=== PATIENT | female | born 1975 | race Caucasian/White ===

== ENCOUNTER 2023-08-29 12:26 | Outpatient (OUT) | payer BC, SELFPAY ==
--- NOTE | 2023-08-29 12:41 | XR_ITS ---
The [address] [address] Patient Name: ALEJANDRO GUILLEN MRN: [id number] date: 1975 Sex: F Assigned Patient Location: [facility] Current Patient Location: [facility] Accession/Order Number: [id number] Exam Date: 08/29/2023 12:50 Report Date: 08/30/2023 10:23 At the request of: NON-STAFF PHYSICIAN Procedure: XR hip RT min 2V PROCEDURE: XR hip RT min 2V COMPARISON: MRI 08/30/2017 HISTORY: Osteochondroma D16.9 FINDINGS: BONES:Stable mixed lytic and sclerotic lesion in a narrow zone of transition measuring 2.8 x 2.0 cm in the right femoral neck, grossly stable in size from the prior MRI. No acute fracture or dislocation. No significant degenerative changes. SOFT TISSUES:Negative. No visible soft tissue swelling. EFFUSION:None visible. OTHER: Negative. XR/XR hip RT min 2V IMPRESSION: Stable 2.7 cm mixed lytic and sclerotic lesion in the right femoral neck Electronically authenticated by: EUN KULKARNI Date: 08/30/2023 10:23
== END 2023-08-29 12:27 | disposition home or self-care (01) ==
LOC: RAD 12:28
PROVIDERS: PCP Family Medicine
DX: R63.5 Abnormal weight gain (principal); D16.9 Benign neoplasm of bone and articular cartilage, unspecified
CPT/HCPCS: 36415; 73502; 80053; 80061; 83036; 83525; 84443; 85025

== ENCOUNTER 2023-08-29 12:31 | Outpatient (OUT) | payer BC, SELFPAY ==
[2023-08-29 12:44] LABS: Basophils Absolute Auto 0.1 10^3/uL (0.0-0.1); Basophils Percent Auto 0.5 % (0.2-2.0); Eosinophils Absolute Auto 0.3 10^3/uL (0.0-0.7); Eosinophils Percent Auto 2.6 % (0.9-7.0); Hematocrit 44.9 % (36.0-48.0); Hemoglobin 14.3 g/dL (12.0-16.0); Immature Granulocytes Abs Auto 0.08 10^3/uL (0.00-0.03); Immature Granulocytes Pct Auto 0.7 % (0.0-0.5); Lymphocytes Absolute Auto 3.6 10^3/uL (1.2-3.8); Lymphocytes Percent Auto 33.1 % (20.5-60.0); Mean Corpuscular HGB Conc 31.8 g/dL (29.9-35.2); Mean Corpuscular Hemoglobin 29.7 pg (26.7-34.0); Mean Corpuscular Volume 93.2 fL (81.0-99.0); Mean Platelet Volume 10.6 fL (9.5-13.5); Monocytes Absolute Auto 0.7 10^3/uL (0.3-0.8); Monocytes Percent Auto 6.6 % (1.7-12.0); Neutrophils Absolute Auto 6.1 10^3/uL (1.4-6.5); Neutrophils Percent Auto 56.5 % (43.0-75.0); Platelet Count 295 10^3/uL (150-450); Red Blood Count 4.82 10^6/uL (4.20-5.40); Red Cell Distribution Width 12.9 % (11.0-15.0); White Blood Count 10.8 10^3/uL (4.0-11.0)
[2023-08-29 13:04] LABS: Estimated Average Glucose 111 mg/dL; Glycohemoglobin A1C 5.5 % (4.5-6.2)
[2023-08-29 14:17] LABS: Alanine Aminotransferase 54 U/L (14-59); Albumin Level 3.4 g/dL (3.4-5.0); Alkaline Phosphatase 85 U/L (46-116); Anion Gap 14.6; Aspartate Amino Transferase 30 U/L (15-37); BUN Creatinine Ratio 22.3; Bilirubin Total 0.2 mg/dL (0.2-1.0); Calcium 8.8 mg/dL (8.5-10.1); Carbon Dioxide 26.5 mmol/L (21.0-32.0); Chloride 103 mmol/L (98-107); Chol HDL Ratio 4.9; Cholesterol 200 mg/dL (<=200); Estimated GFR (African America >60 (>=60); Estimated GFR (Non-African Ame >60 (>=60); Globulin 3.4 g/dL; Glucose 83 mg/dL (74-106); HDL Cholesterol 41 mg/dL (40-60); Potassium 4.1 mmol/L (3.5-5.1); Sodium 140 mmol/L (136-145); TSH W/ REFLEX FT4 1.634 uIU/mL (0.358-3.740); Total Protein 6.8 g/dL (6.4-8.2); Triglycerides 381 mg/dL (<=150); VLDL CHOLESTEROL 76.2 mg/dL
[2023-08-30 08:11] LABS: Insulin 22.4 uIU/mL (2.6-24.9)
== END 2023-08-29 12:32 | disposition home or self-care (01) ==
LOC: LAB 12:31
PROVIDERS: PCP Family Medicine
DX: R63.5 Abnormal weight gain (principal)
CPT/HCPCS: 36415; 80053; 80061; 83036; 83525; 84443; 85025

== ENCOUNTER 2024-05-21 14:47 | Outpatient (OUT) | payer BC, SELFPAY ==
--- NOTE | 2024-05-21 14:52 | XR_ITS ---
The [address] [address] Patient Name: ALEJANDRO GUILLEN MRN: [id number] date: 1975 Sex: F Assigned Patient Location: [facility] Current Patient Location: Accession/Order Number: [id number] Exam Date: 05/21/2024 14:54 Report Date: 05/22/2024 15:05 At the request of: ANGEL OLIVER Procedure: XR chest 2V EXAM: CHEST 2 VIEWS HISTORY: Cough, Wheezing TECHNIQUE: PA and lateral views chest. COMPARISON: None. FINDINGS: The lungs are clear. There is no focal lung consolidation, pleural effusion or pneumothorax. Pulmonary vasculature is within normal limits. The cardiomediastinal silhouette is normal. XR/XR chest 2V IMPRESSION: 1. No acute cardiopulmonary disease. Recommend followup imaging if symptoms worsen or persist. Electronically authenticated by: JESSI JONAS Date: 05/22/2024 15:05
== END 2024-05-21 14:48 | disposition home or self-care (01) ==
LOC: RAD 14:50
PROVIDERS: PCP Family Medicine; Visit Provider Family Medicine
DX: R05.9 Cough, unspecified (principal); R06.2 Wheezing
CPT/HCPCS: 71046

== ENCOUNTER 2024-11-08 22:10 | Emergency (ER) | payer BC, SELFPAY ==
[2024-11-08 22:28] VITALS: BP 114/69; PULSE 104; TEMP 36.9; O2SAT 94; BMI 37.4
--- OUTSIDE RECORDS SUMMARY | 2024-11-08 22:43 | XMS_ITS | CCD ---
Author Organization [facility] Care Team Providers Care Intelligence Clerk Name Role Phone BRODIE PETERSEN Unavailable Unavailable HOUSE, PIETRO Garrison Unavailable Unavailable MAYERSONBRODIE Unavailable Unavailable VAJAPEY, MATA Unavailable Unavailable MAYERSON, BRODIE Yates Unavailable Unavailable MAYERSON, BRODIE Yates Unavailable Unavailable HOUSE, DR WESTBROOK Primary Care Unavailable MARKER, DR MOLINA Attending Unavailable MARKER, DR MOLINA Consulting Unavailable MARKER, DR MOLINA Admitting Unavailable DELVIS, ANGELICA Consulting Unavailable HOUSE, DR WESTBROOK Primary Care Unavailable HOUSE, DR WESTBROOK Admitting Unavailable HOUSE, DR WESTBROOK Attending Unavailable HOUSE, DR WESTBROOK Consulting Unavailable SAVEBHILLARY, DR GONZALO Estrada Consulting Unavailable HOUSE, DR WESTBROOK Admitting Unavailable HOUSE, DR WESTBROOK Attending Unavailable HOUSE, DR WESTBROOK Consulting Unavailable HOUSE, DR WESTBROOK Primary Care Unavailable LIT, DR GONZALO Estrada Consulting Unavailable Dank Griffin Primary Care Physician EL ELLISON Attending Unavailable APLGIOVANNY, EL Layton Referring Unavailable APLING, EL Layton Attending Unavailable APLING, EL Layton Referring Unavailable Dank Griffin Attending Unavailable Dank Griffin Attending Unavailable Dank Griffin Attending Unavailable KATHY REYNOSO Attending Unavailable Dank Griffin Attending Unavailable Allergies Allergy Classification Reported Allergen(s) Allergy Type Date of Onset Reaction(s) Facility (1 source) No Known Medication Allergies; Translations: [No Known Medication Allergies] Propensity to adverse reactions (disorder) [facility] Repository Medications Current Medications Medication Drug Class(es) Dates Sig (Normalized) Sig (Original) DULoxetine 60 mg delayed release oral capsule (3 sources) Serotonin and Norepinephrine Reuptake Inhibitor Start: 05-23-20 take 1 capsule by mouth once daily duloxetine 60 mg oral delayed release capsule 60 mg = 1 cap(s), Oral, Daily, # 90 cap(s), Refills(s) 0, Pharmacy: [facility], 165.5, cm, 05/23/23 15:06:00 EST, Height/Length Dosing, 102.5, kg, 05/23/23 15:06:00 EST, Weight Dosing Start Date: 05/23/23 Status: Ordered fluticasone propionate 0.05 mg/actuat metered dose nasal spray (1 source) Corticosteroid fluticasone prop ionate 50 mcg/actuation nasal spray,suspension spray once into each nostril TWICE DAILY active Not Available Not Available Not Available hydroCHLOROthiazide 12.5 mg oral capsule (3 sources) Thiazide Diuretic Start: 05-23-20 End: 06-04-20 take 1 capsule by mouth once daily hydrochlorothiazide 12.5 mg Cap 12.5 mg = 1 cap(s), Oral, Daily, # 90 cap(s), Refills(s) 0, Pharmacy: [facility], 165.5, cm, 05/23/23 15:06:00 EST, Height/Length Dosing, 102.5, kg, 05/23/23 15:06:00 EST, Weight Dosing Start Date: 05/23/23 Status: Ordered pramipexole dihydrochloride 1.5 mg oral tablet (3 sources) Nonergot Dopamine Agonist Start: 05-23-20 take 1 tablet by mouth once daily pramipexole 1.5 mg Tab 1.5 mg = 1 tab(s), Oral, Daily, # 90 tab(s), Refills(s) 0, Pharmacy: [facility], 165.5, cm, 05/23/23 15:06:00 EST, Height/Length Dosing, 102.5, kg, 05/23/23 15:06:00 EST, Weight Dosing Start Date: 05/23/23 Status: Ordered {11 (varenicline 0.5 MG Oral Tablet [Chantix]) / 42 (varenicline 1 MG Oral Tablet [Chantix]) } Pack [Chantix First Month of Therapy] (2 sources) Partial Cholinergic Nicotinic Agonist Start: 06-27-19 take 1 tablet by mouth twice daily Chantix 1 mg oral tablet 1 mg = 1 tab(s), Oral, BID, Take after the starter dose., # 180 tab(s), Refills(s) 1, Pharmacy: [facility], 165.5, cm, 06/27/23 14:04:00 EST, Height/Length Dosing, 101.3, kg, 06/27/23 14:04:00 EST, Weight Dosing Start Date: 06/27/23 Status: Ordered Start: 06-27-2023 take 0.5 tablet by m outh twice daily, then take 1 mg by mouth twice daily at mealtime Chantix Starter Pack 0.5 mg-1 mg oral tablet See Instructions, Start with .5 bid for 2 weeks then move to 1mg bid. Please take with food, # 60 EA, Refills(s) 0, Pharmacy: [facility], 165.5, cm, 06/27/23 14:04:00 EST, Height/Length Dosing, 101.3, kg, 06/27/23 14:04:00 EST, Weight Dosing Start Date: 06/27/23 Status: Ordered Completed/Discontinued Medications Medication Drug Class(es) Dates Sig (Normalized) Sig (Original) acetaminophen 300 mg / codeine phosphate 30 mg oral tablet (1 source) Opioid Agonist End: 4 take 1 tablet by mouth every six hours as needed for pain acetaminophen 300 mg-codeine 30 mg tablet TAKE 1 TABLET BY MOUTH EVERY 6 HOURS NEEDED FOR PAIN 06/04/2024 completed Not Available Not Available Not Available amoxicillin 500 mg oral tablet (1 source) Penicillin-class Antibacterial End: 4 take 1 tablet by mouth every six hours amoxicillin 500 mg tablet TAKE 1 TABLET BY MOUTH EVERY 6 HOURS UNTIL FINISHED 06/04/2024 completed Not Available Not Available Not Available amoxicillin 875 mg / clavulanate 125 mg oral tablet (1 source) Penicillin-class Antibacterial End: 4 take 1 tablet by mouth twice daily amoxicillin 875 mg-potassium clavulanate 125 mg tablet TAKE 1 TABLET BY MOUTH TWICE DAILY UNTIL GONE 06/04/2024 completed Not Available Not Available Not Available azithromycin 250 mg oral tablet (1 source) Macrolide Antimicrobial End: 4 azithromycin 250 mg tablet TAKE 2 TABLETS by mouth today, THEN take 1 TABLET once a day FOR the next 4 DAYS. 06/04/2024 completed Not Available Not Available Not Available chlorhexidine gluconate 1.2 mg/ml mouthwash (1 source) End: 4 chlorhexidine gluconate 0.12 % mouthwash Rinse WITH ONE-HALF OUNCE for 30 seconds, then spit out TWICE DAILY FOR 14 DAYS 06/04/2024 completed Not Available Not Available Not Available methylprednisolone 4 mg tablets in a dose pack (1 source) End: 4 methylprednisolone 4 mg tablets in a dose pack TAKE BY MOUTH DIRECTED ON PACKAGE 06/04/2024 completed Not Available Not Available Not Available Problems Active Problems Problem Classification Problem Date Documented Date Episodic/Chronic Anxiety disorders (3 sources) Anxiety disorder, unspecified; Translations: [Mixed anxiety and depressive disorder] Onset: 11-02-2021 05-23-2023 Chronic Essential hypertension (1 source) Hypertensive disorder 06-27-2023 Chronic Mood disorders (2 sources) Major depressive disorder, single episode, unspecified; Translations: [Depressive disorder] Onset: 11-02-2021 Chronic Other circulatory disease (1 source) Elevated blood-pressure reading without diagnosis of hypertension 05-23-2023 Episodic Other hereditary and degenerative nervous system conditions (1 source) Restless legs syndrome; Translations: [RESTLESS LEGS SYNDROME] Onset: 11-02-2021 Chronic Other hereditary and degenerative nervous system conditions (3 sources) Restless legs Onset: 06-04-2024 05-23-2023 Chronic Other skin disorders (1 source) Localized swelling, mass and lump, unspecified; Translations: [Localized swelling, mass and lump, unspecified] Onset: 09-20-2017 Episodic Residual codes; unclassified (2 sources) Pitting edema 05-23-2023 Episodic Residual codes; unclassified (2 sources) Sleep disorder 05-23-2023 Episodic Spondylosis; intervertebral disc disorders; other back problems (1 source) Other intervertebral disc degeneration, lumbar region; Translations: [OTH IV DISC DEGEN LUMBAR REGION] Onset: 04-26-2022 Chronic Unclassified (1 source) Localized swelling, mass and lump, unspecified / R22.9(ICD-10) Onset: 09-20-2017 Unclassified (3 sources) LOW BACK PAIN, UNSPECIFIED; Translations: [LOW BACK PAIN, UNSPECIFIED] Onset: 04-26-2022 Unclassified (3 sources) Patient encounter status 05-23-2023 Past or Other Problems Problem Classification Problem Date Documented Da te Episodic/Chronic Other connective tissue disease (4 sources) Pain in right foot; Translations: [PAIN IN RIGHT FOOT] Onset: 07-29-2021 Episodic Other skin disorders (4 sources) Localized swelling, mass and lump, neck; Translations: [LOCALIZED SWELLING MASS AND LUMP NECK] Onset: 10-29-2021 Episodic Unclassified (1 source) LOW BACK PAIN, UNSPECIFIED; Translations: [LOW BACK PAIN, UNSPECIFIED] Onset: 04-22-2022 Results Test Name Value Interpretation Reference Range Facility hearing screening*on 025 Unknown Analyte Pass Invalid Interpretation Code [facility] urinalysis, dipstickon 10-30 Appearance (U) Clear Invalid Interpretation Code [employer] Color (U) Yellow Invalid Interpretation Code [employer] [employer] Glucose Ql (U) Negative Invalid Interpretation Code [employer] Ambulatory Visit Summaryon 0 07-16-2024 Ambulatory Visit Summary Ambulatory Visit Summary ALEJANDRO HILLS :1975 Visit Date:07/16/2024 Ambulatory Visit Instructions Your Diagnosis BMI 36.0-36.9,adult Obesity (BMI 30-39.9) Smoker Your Care Team Attending Physician - Dank Griffin MD Primary Care Physician - Dank Griffin MD. This Is Your Medications List duloxetine (duloxetine 60 mg oral delayed release capsule) hydrochlorothiazide (hydrochlorothiazide 12.5 mg Cap) pramipexole (pramipexole 1.5 mg Tab) Procedures Performed Hysterectomy and bilateral salpingo-oophorectomy sample, Tonsillectomy. Discharge Vitals Temperature (Tympanic) 36.7 ???C Heart Rate (Peripheral) 86 Respiratory Rate 18 Blood Pressure 138/84 Height 165.5 cm Height 65 in Weight 100.0 kg Weight 220.462 lb BMI 36.51 Medications What How Much When Instructions Unchanged duloxetine (duloxetine 60 mg oral delayed release capsule) 1 Capsules By Mouth Every day Unchanged hydrochlorothiazide (hydrochlorothiazide 12.5 mg Cap) See instructions TAKE 1 CAPSULE BY MOUTH DAILY Unchanged pramipexole (pramipexole 1.5 mg Tab) 1 Tablets By Mouth Every day Allergies No Known Medication Allergies Problems Ongoing - Any problem that you are currently receiving treatment for. BMI 36.0-36.9,adult HLD (hyperlipidemia) HTN (hypertension) Low back pain Mixed anxiety and depressive disorder Mixed anxiety and depressive disorder Obesity (BMI 30-39.9) Osteochondroma of bone Physical exam Pitting edema Pitting edema Restless legs Sleep disorder Smoker Patient Survey You may receive a survey via text or e-mail asking about your office visit. Please share your experience with us by completing your survey. We appreciate your feedback and thank you for choosing us for your care. [facility] Family Medicine Office/Clini c Noteon 07-16-2024 Family Medicine Office/Clinic Note Family Medicine Office/Clinic Note Chief Complaint Acute Visit *Ear pain The patient is concerned about the inability to hear from the left ear. HPI Staff Pt presents today due to Lt ear pain. Fevers: no Sinus congestion: no Sneezing: no Ear pain: Lt ear Ear itching, popping, fullness, ringing, muffled hearing:no Ear drainage: 1 night last week Swollen nodes: last week Sore throat: no Ear pain worse with chewing: no Itching: no Difficulty hearing: yes Has tried flushing with peroxide. No relief. History of Present Illness The patient is a 49-year-old female presenting with decreased auditory perception in the left ear. Approximately one week ago, the patient noted some fluid drainage from the ear, which coincided with the onset of diminished hearing. Initially, the patient attempted self-treatment with peroxide ear drops, but there was no improvement in hearing ability. Currently, the patient experiences no acute otalgia. Despite concerns, no significant changes in pain levels have been observed. The patient denies any ongoing drainage at this time, although fluid accumulation behind the ear persists. There is no report of wax occlusion as per the examination, with a history of similar issues being experienced by the patient's ex-. Review of Systems PHQ Score Initial Depression Screen Score: 0 SCORE - Ears/Nose/Throat: Reports decreased hearing in the left ear. Denies pain or ongoing drainage from the ear. Physical Exam Vitals & Measurements T: 36.7 ???C(Tympanic) HR: 86(Peripheral) RR: 18 BP: 138/84 SpO2: 95% HT: 65 in HT: 165.5 cm WT: 100.0 kg WT: 220.462 lb BMI: 36.51 - Ears- Presence of fluid behind the left tympanic membrane noted. No earwax buildup observed. Assessment/Plan 1. Eustachian tube dysfunction (H69.90: Unspecified Eustachian tube disorder, unspecified ear) I discussed with the patient that fluid retention behind the tympanic membrane is likely contributing to the hearing difficulty experienced. I recommended the use of nasal saline irrigation to address potential sinus congestion, followed by the administration of Flonase for its anti-inflammatory effects on the nasal pathways and Eustachian tube. This regimen is expected to aid in the resolution of the fluid buildup and improve hearing function. The patient was advised to closely monitor symptoms and was informed that further assessment will be necessary if no improvement is observed. Ordered: fluticasone nasal, 1 spray(s), Nasal, BID, 16 gram, Refill(s) 0, each nostril, [facility], 165.5, cm, 07/16/24 16:51:00 EST, Height/Length Dosing, 100, kg, 07/16/24 16:51:00 EST, Weight Dosing 2. BMI 36.0-36.9,adult (Z68.36: Body mass index [BMI] 36.0-36.9, adult) BMI education added Ordered: fluticasone nasal, 1 spray(s), Nasal, BID, 16 gram, Refill(s) 0, each nostril, [facility], 165.5, cm, 07/16/24 16:51:00 EST, Height/Length Dosing, 100, kg, 07/16/24 16:51:00 EST, Weight Dosing 3. Obesity (BMI 30-39.9) (E66.9: Obesity, unspecified) Diet and exercise advised Ordered: fluticasone nasal, 1 spray(s), Nasal, BID, 16 gram, Refill(s) 0, each nostril, [facility], 165.5, cm, 07/16/24 16:51:00 EST, Height/Length Dosing, 100, kg, 07/16/24 16:51:00 EST, Weight Dosing 4. Smoker (F17.200: Nicotine dependence, unspecified, uncomplicated) Please stop smoking. Ordered: fluticasone nasal, 1 spray(s), Nasal, BID, 16 gram, Refill(s) 0, each nostril, [facility], 165.5, cm, 07/16/24 16:51:00 EST, Height/Length Dosing, 100, kg, 07/16/24 16:51:00 EST, Weight Dosing Follow-up No qualifying data available Problem List/Past Medical History Ongoing BMI 36.0-36.9,adult Eustachian tube dysfunction HLD (hyperlipidemia) HTN (hypertension) Low back pain Mixed anxiety and depressive disorder Mixed anxiety and depressive disorder Obesity (BMI 30-39.9) Osteochondroma of bone Physical exam Pitting edema Pitting edema Restless legs Sleep disorder Smoker Historical No qualifying data Procedure/Surgical History Hysterectomy and bilateral salpingo-oophorectomy sample, Tonsillectomy. Medications duloxetine 60 mg oral delayed release capsule, 60 mg= 1 cap(s), Oral, Daily, 1 refills Flonase 0.05 mg/inh [place], 1 spray(s), Nasal, BID hydrochlorothiazide 12.5 mg Cap, See Instructions pramipexole 1.5 mg Tab, 1.5 mg= 1 tab(s), Oral, Daily Allergies No Known Medication Allergies Social History Alcohol Never., 05/21/2024 Substance Abuse Never., 05/21/2024 Tobacco 10 or more cigarettes (1/2 pack or more)/day in last 30 days Tobacco Use:. Never Smokeless Tobacco Use:. Cigarettes, Household tobacco concerns: No. Yes, 07/16/2024 Family History Alcoholism: Mother and Father. Anxiety: Father. Depression: Father. Hyperlipidemia: Mother and Father. Hypertension: Mother and Father. Immunizations Vaccine Date Status Comments SARS-CoV-2 (COVID-19) mRN (more content not included)... Normal [facility] Comment on above: Result Comment: Elec tronically Signed By: Elias GENAO, Dank Avilez.br\Date and Time Signed: 07/16/24 17:14 EST Family Medicine Office/Clini c Noteon 05-21-2024 Family Medicine Office/Clinic Note Family Medicine Office/Clinic Note HPI Staff Alejandro is a 48 year old female presenting for acute visit Acute: wheezing and cough since Tuesday _Respiratory C/O: Duration: 6 days Body aches: no Chest congestion: yes Chills: no Cough: yes Ear complaints: no Eye itching/watering: no Fever: yes maybe last tue. Headache: yes Nasal congestion: yes Nasal discharge: yes clear Poor appetite: no Reduced activity: no Sinus pain/pressure: yes Sneezing: yes Sputum production: no Wheezing: yes Ill contacts: no Remedies tried: nyquil first then dayquil, mucinex DM today _ _ History of Present Illness See staff HPI Review of Systems PHQ Score Initial Depression Screen Score: 0 SCORE Physical Exam Vitals & Measurements T: 36.6 ???C(Temporal Artery) HR: 94(Peripheral) RR: 20 BP: 132/80 SpO2: 95% HT: 65 in HT: 165.5 cm WT: 101.1 kg WT: 222.887 lb BMI: 36.91 General: alert, no acute distress ENMT: oral mucosa moist, Cardiovascular: regular rate and rhythm, normal peripheral perfusion Respiratory: Lungs expiratory wheezes, respirations non labored, decreased air movement on the right lower lobe. Extremities: no deformity, no trauma Neurological: oriented x 4, LOC appropriate for age, CN II-XII intact, motor strength equal & normal bilaterally, speech normal Abdomen: Soft, Nontender, Non-distended, + BS Assessment/Plan 1. Cough (R05.9: Cough, unspecified) COVID is negative at this time however with the decreased air movement in the right lower lobe I am concerned for pneumonia. Chest x-ray has been ordered. Will go ahead and call in azithromycin and a Medrol Dosepak however if the x-ray comes back positive for pneumonia we will need to reevaluate the antibiotics. Ordered: azithromycin, = 1 packet(s), Oral, As Directed, as directed on package labeling, X 5 day(s), # 6 tab(s), Refills(s) 0, Pharmacy: [facility], 165.5, cm, 05/21/24 14:27:00 EST, Height/Length Dosing, 101.1, kg, 05/21/24 14:27:00 EST, Weight Dosing methylPREDNISolone, = 1 packet(s), Oral, As Directed, as directed on package labeling, X 6 day(s), # 21 tab(s), Refills(s) 0, Pharmacy: [facility], 165.5, cm, 05/21/24 14:27:00 EST, Height/Length Dosing, 101.1, kg, 05/21/24 14:27:00 EST, Weight Dosing Influenza Type A&B POC 55281 2. Wheezing (R06.2: Wheezing) As above Ordered: azithromycin, = 1 packet(s), Oral, As Directed, as directed on package labeling, X 5 day(s), # 6 tab(s), Refills(s) 0, Pharmacy: [facility], 165.5, cm, 05/21/24 14:27:00 EST, Height/Length Dosing, 101.1, kg, 05/21/24 14:27:00 EST, Weight Dosing methylPREDNISolone, = 1 packet(s), Oral, As Directed, as directed on package labeling, X 6 day(s), # 21 tab(s), Refills(s) 0, Pharmacy: [facility], 165.5, cm, 05/21/24 14:27:00 EST, Height/Length Dosing, 101.1, kg, 05/21/24 14:27:00 EST, Weight Dosing Influenza Type A&B POC 72973 3. BMI 36.0-36.9,adult (Z68.36: Body mass index [BMI] 36.0-36.9, adult) BMI education added Ordered: azithromycin, = 1 packet(s), Oral, As Directed, as directed on package labeling, X 5 day(s), # 6 tab(s), Refills(s) 0, Pharmacy: [facility], 165.5, cm, 05/21/24 14:27:00 EST, Height/Length Dosing, 101.1, kg, 05/21/24 14:27:00 EST, Weight Dosing methylPREDNISolone, = 1 packet(s), Oral, As Directed, as directed on package labeling, X 6 day(s), # 21 tab(s), Refills(s) 0, Pharmacy: [facility], 165.5, cm, 05/21/24 14:27:00 EST, Height/Length Dosing, 101.1, kg, 05/21/24 14:27:00 EST, Weight Dosing 4. 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 Smoker (F17.200: Nicotine dependence, unspecified, uncomplicated) Please stop smoking Ordered: azithromycin, = 1 packet(s), Oral, As Directed, as directed on package labeling, X 5 day(s), # 6 tab(s), Refills(s) 0, Pharmacy: [facility], 165.5, cm, 05/21/24 14:27:00 EST, Height/Length Dosing, 101.1, kg, 05/21/24 14:27:00 EST, Weight Dosing methylPREDNISolone, = 1 packet(s), Oral, As Directed, as directed on package labeling, X 6 day(s), # 21 tab(s), Refills(s) 0, Pharmacy: [facility], 165.5, cm, 05/21/24 14:27:00 EST, Height/Length Dosing, 101.1, kg, 05/21/24 14:27:00 EST, Weight Dosing Follow-up No qualifying data available Patient Education BMI for Adults Problem List/Past Medical History On (more content not included)... [facility] Comment on above: Result Comment: Elec tronically Signed By: Elias GENAO, Dank Avilez.br\Date and Time Signed: 05/21/24 14:44 EST Physician Referralon 024 Physician Referral [id number] [facility] Lab Reportson 09-01-2023 Lab Reports [id number] 0TIFF [facility] RAD - MISCon 09-01-2023 RAD - MISC [id number] 0TIFF Normal [facility] Family Medicine Office/Clini c Noteon 08-29-2023 Family Medicine Office/Clinic Note Chief Complaint hip pain HPI Staff Patent of Dr. Griffin presents for acute visit. complaints of Right hip pain. Onset: last couple months Characteristics: sharp OTC tried: tylenol not effective pain 5-11/20 diagnosed with osteochondroma years ago Blood pressure 160/100 patient reports not taking medication today. I have reviewed and verified the staff HPI to be accurate for this encounter. History of Present Illness 48 [address] old patient of Dr. Griffin presents for evaluation of right hip pain. She states she was diagnosed with osteochondroma of the right hip several years ago in [place]. She saw an Orthopedic surgeon at that time and was told surgery was not needed. She states over the past several months she has noticed more pain in the right hip when she stands or attempts to walk. She is wondering if maybe the osteochondroma has increased in size and maybe needs to be removed. She states she has taken Acetaminophen 500 mg two tablets 1-2 times daily with mild relief. She is in agreement to start with an Xray but would like a referral to Dr. Lamas. Review of Systems PHQ Score Initial Depression Screen Score: 0 SCORE Constitutional: no fever, no chills, no sweats, no weakness Skin: no Jaundice, no rash, no lesions, nopetechiae ENMT: no ear pain, no sore throat, no congestion, no hoarseness Respiratory: no shortness of breath, no cough, no orthopnea, no wheezing Cardiovascular: no chest pain, no palpitations, no edema Musculoskeletal: no back pain, no trauma; right hip pain Neurologic: no headache, no dizziness, no numbness, no weakness Psychiatric: no sleeping problems, no irritability, no mood swings/depression. Additional ROS info: Except as noted in the above Review of Systems and in the History of Present Illness all other systems have been reviewed and are negative or noncontributory. Physical Exam Vitals & Measurements HR: 78(Peripheral) BP: 140/82 SpO2: 96% HT: 65 in HT: 165.5 cm WT: 99.8 kg WT: 219.56 lb BMI: 36.44 General: alert, no acute distress Skin: warm, dry Head: no trauma, normocephalic Neck: Trachea midline, no adenopathy, no tenderness Eye: normal conjunctiva, sclera clear ENMT: TM's clear, oral mucosa moist, no pharyngeal erythema or exudate Cardiovascular: regular rate and rhythm, normal peripheral perfusion Respiratory: Lungs CTA, respirations non labored Extremities: no deformity, no trauma; normal ROM; tenderness to the right hip with palpation Neurological: oriented x 4, LOC appropriate for speech normal Psychiatric: cooperative, affect appropriate for age, normal judgement, normal psychiatric thoughts. Assessment/Plan 1. Osteochondroma of bone (D16.9: Benign neoplasm of bone and articular cartilage, unspecified) Continue otc ACETAMINOPHEN 500 MG TWO TABLETS UP TO 4 TIMES DAILY Discussed referral to PT /Ortho pending results of the hip Xray Explained to patient Xray results may take up to 36 hours. Ordered: XR Hip 2-3 Views Right 2. BMI 36.0-36.9,adult (Z68.36: Body mass index [BMI] 36.0-36.9, adult) The standard range for ages 18 and older is >=18.5 and < 25 kg/m2. Your BMI today was above this range, this falls in the overweight to obese category and there are medical benefits to weight loss. We can offer counselling, referral, and/or medical support in addressing this problem. Your BMI and weight management will be followed at subsequent visits. Ordered: XR Hip 2-3 Views Right Patient has elevated b/p at 160/100 and it was rechecked and is 140/82- encouraged to schedule a NV for B/P recheck Total time spent preparing the chart, conducting of the encounter with the patient and family and time spent documenting, reviewing, and ordering tests was 30 minutes. Follow-up No qualifying data available Problem List/Past Medical History Ongoing HLD (hyperlipidemia) HTN (hypertension) Low back pain Mixed anxiety and depressive disorder Mixed anxiety and depressive disorder Osteochondroma of bone Physical exam Pitting edema Pitting edema Restless legs Sleep disorder Historical No qualifying data Procedure/Surgical History Hysterectomy and bilateral salpingo-oophorectomy sample, Tonsillectomy. Medications duloxetine 60 mg oral delayed release capsule, 60 mg= 1 cap(s), Oral, Daily hydrochlorothiazide 12.5 mg Cap, See Instructions pramipexole 1.5 mg Tab, 1.5 mg= 1 tab(s), Oral, Daily Allergies No Known Medication Allergies Social History Tobacco Cigarettes, Ready to change: No. Household tobacco concerns: No. Yes, 08/29/2023 Family History Alcoholism: Mother and Father. Anxiety: Father. Depression: Father. Hyperlipidemia: Mother and Father. Hypertension: Mother and Father. Immunizations Vaccine Date Status Comments SARS-CoV-2 (COVID-19) mRNA BNT-162b2 vax 12/12/2020 Recorded SARS-CoV-2 (COVID-19) mRNA BNT-162b2 vax 11/20/2020 Recorded 2023-05-11: TPV40 Normal [facility] Comment on above: Result Comment: Elec tronically Signed By: KATHY REYNOSO CNP\.br\Date and Time Signed: 08/29/23 13:12 EDT Physician Orderon 08-29-2023 Physician Order [id number]#1.0 0TIFF Normal [facility] Patient Correspondenceon Patient Correspondence [id number]#1.0 0TIFF Normal [facility] CHEMISTRYOrdered By: SYSTEM SYSTEM on 06-27-2023 Albumin [Mass/Vol] 3.7 g/dL Normal 3.3 - 5.0 gm/dL Remisol Chem Albumin/Globulin [Mass ratio] 1.6 {ratio} Normal 1.1 - 2.2 [facility] Alk Phos 61 [iU]/d Normal 21 - 98 Int._Unit/L Remisol Chem ALT 21 [iU]/d Normal 6 - 46 Int._Unit/L Remisol Chem Anion gap [Moles/Vol] 10 mmol/L Normal 6 - 16 mEq/L R emisol Chem AST 20 [iU]/d Normal 5 - 43 Int._Unit/L Remisol Chem Bili Total 0.3 mg/dL Normal 0.0 - 1.1 mg/dL [facility] Calcium [Mass/Vol] 8.8 mg/dL Low 8.9 - 11. 1 mg/dL [facility] Chloride [Moles/Vol] 106 mmol/L Normal 101 - 1 11 mmol/L [facility] Cholesterol [Mass/Vol] 215 mg/dL High 120 - 200 mg/dL Rem[facility] Chem Cholesterol in HDL [Mass/Vol] 40 mg/dL Invalid Interpretation Code Remisol Chem Comment on above: Result Comment: '>= 60 LOW RISK' '<= 40 HIGH RISK' Cholesterol in LDL [Mass/Vol] 110 mg/dL Normal <=129mg/dL [facility] Cholesterol in VLDL [Mass/Vol] 102 mg/dL High 7 - 40 mg/dL [facility] Comment on above: Result Comment: 'VIKY BLE TO REPORT. TRIG > 400 mg/dl' CO2 [Moles/Vol] 29 mmol/L Normal 21 - 31 mmol/L [facility] Creatinine [Mass/Vol] 0.9 mg/dL Normal 0.5 - 1.3 mg/dL [facility] eGFR 78 mL/min/1.73 m2 Normal >=59mL/min /1 .73 m2 [facility] Globulin (S) [Mass/Vol] 2.3 g/dL Normal 1.4 - 4.0 gm/dL [facility] Glucose [Mass/Vol] 92 mg/dL Normal 55 - 199 mg/dL Rem[facility] Potassium [Moles/Vol] 3.8 mmol/L Normal 3.5 - 5.3 mmol/L Rem[facility] Chem Protein [Mass/Vol] 6.0 g/dL Normal 6.0 - 7.8 gm/dL [facility] Sodium [Moles/Vol] 141 mmol/L Normal 135 - 145 mmol/L [facility] Triglyceride [Mass/Vol] 510 mg/dL High <=149mg/dL Rem[facility] Chem Urea nitrogen [Mass/Vol] 18 mg/dL Normal 5 - 21 mg/dL Rem[facility] Chem Urea nitrogen/Creatinine [Mass ratio] 20 mg/mg Normal 10 - 20 Remisol Chem HEMATOLOGYOrdered By: SYSTEM SYSTEM on 06-27-2023 Basophils/100 WBC (Bld) 0.5 % Normal 0.0 - 2.0 % [facility] Basophils/Leukocytes Auto (Bld) [Pure # fraction] 0.1 E9/L Normal 0.0 - 0.2 E9/L [facility] Eosinophils/100 WBC (Bld) 2.1 % Normal 0.0 - 8.0 % [facility] Eosinophils/Leukocyte s Auto (Bld) [Pure # fraction] 0.2 E9/L Normal 0.0 - 0.5 E9/L [facility] Lymphocytes/100 WBC (Bld) 29.7 % Normal 14.0 - 50.0 % [facility] Lymphocytes/Leukocyte s Auto (Bld) [Pure # fraction] 3.4 E9/L Normal 1.0 - 4.0 E9/L [facility] Monocytes/100 WBC (Bld) 5.1 % Normal 4.0 - 14.0 % [facility] Monocytes/Leukocytes Auto (Bld) [Pure # fraction] 0.6 E9/L Normal 0.2 - 1.0 E9/L [facility] Neutrophils/100 WBC (Bld) 62.6 % Normal 36.0 - 75.0 % [facility] Neutrophils/Leukocyte s Auto (Bld) [Pure # fraction] 7.1 E9/L Normal 2.0 - 7.5 E9/L [facility] HEMATOLOGYOrdered By: Rosie Bailey on 06-27-2023 Erythrocyte distribution width (RBC) [Ratio] 13.9 % Normal 10.9 - 14.2 % [facility] Hematocrit (Bld) [Volume fraction] 43.0 % Normal 34.0 - 46.0 % [facility] Hemoglobin (Bld) [Mass/Vol] 14.4 g/dL Normal 12.0 - 16.0 gm/dL [facility] MCH (RBC) [Entitic mass] 29.3 pg Normal 27.0 - 34.0 pg [facility] MCHC (RBC) [Mass/Vol] 33.4 g/dL Normal 31.4 - 36.0 gm/dL [facility] MCV (RBC) [Entitic vol] 87.6 fL Normal 80.0 - 100.0 fL [facility] Platelet mean volume (Bld) [Entitic vol] 9.5 fL Normal 6.4 - 10.8 fL [facility] Platelets (Bld) [#/Vol] 287.0 E9/L Normal 150.0 - 500.0 E9/L [facility] RBC (Bld) [#/Vol] 4.9 E12/L Normal 4.3 - 5.9 E12/L [facility] WBC corrected for nucl RBC Auto (Bld) [#/Vol] 11.3 E9/L High 4.0 - 11.0 E9/L [facility] XR LSPINE MIN 4 VIEWSon 04-13 XR LSPINE MIN 4 VIEWS EXAMINATION: XR LS PINE MIN 4 VIEWS HISTORY: Low back pain; acute low back pain after moving furniture COMPARISON: No relevant comparison available. FINDINGS: BONES: Mild degenerative facet arthropathy L4-L5, L5-S1. No fracture or spondylolisthesis. DISC SPACES: Mild narrowing L4-L5, L5-S1. PARASPINOUS: Negative. No paraspinous abnormality is seen. OTHER: Negative. IMPRESSION: 1. Mild degenerative disc disease and degenerative facet arthropathy of lower lumbar spine. Electronically authenticated by: GONZALO MURRIETA Date: 2022-04-23 06:28 Normal [facility] GROUP A STREP CULTUREon 10-11 S. pyogenes Ag Ql (Unsp spec) Culture Observations: Negative for Group A Streptococcus Normal [facility] Comment on above: Performed By: #### S CHARANJIT GRASTCX #### [facility] [address] [id number] [address] Latanya Gaitan STREPT SCREENon 10-29-2021 STREP SCREEN A Negative Normal NEGATIVE [facility] Comment on above: Performed By: #### S SCRN GRASTCX #### [facility] [id number] Latanya Gaitan XR NECK SOFT TISSUEon 2021 XR NECK SOFT TISSUE EXAM: XR NECK SOFT TISSUE HISTORY: itching dyspnea. COMPARISON: None. TECHNIQUE: Frontal and lateral views of the neck soft tissues are obtained. FINDINGS: There is no prevertebral soft tissue swelling. No radiopaque foreign body. Enlargement of the palatine tonsils is present with apparent narrowing of the oropharynx. The trachea is normally patent. No thickened epiglottis is identified. The osseous structures appear grossly intact. The visualized lung apices are normally clear. IMPRESSION: Apparent enlargement of palatine tonsils. Electronically authenticated by: ANGELICA EDMONDSON Date: 2021-10-29 04:33 Normal [facility] XR HIP RIGHT 2 VIEWSon 09-20 XR HIP RIGHT 2 VIEWS EXAM: XR HIP RIGHT 3 VIEWS, 09/20/2017 14:39 PMCOMPARISON: No prior studies available for comparison.CLINICAL INDICATIONS: eval for lesion right hipRELEVANT CLINICAL HISTORY: R22.9:Localized swelling, mass and lump,unspecifiedFINDIN GS:3 images obtained.Soft Tissue: There is no obvious soft tissue swelling.Bone: No acute osseous abnormality is identified.Hip: The there is coxa profunda of the right hip with mild degenerativechanges. 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 Normal [facility] Vital Signs Date Time Vital Sign Value Performing Clinician Faci lity 10-30-2024 01:00-0400 Body height 165.1 cm Zahira Sandhu [place] [facility] 10-30-2024 01:00-0400 Body mass index (BMI) [Ratio] 38.4 kg/m2 Zahira Sandhu [place] [facility] 10-30-2024 01:00-0400 Body surface area Derived from formula 2.19 m2 Zahira [facility] [place] [facility] 10-30-2024 01:00-0400 Body weight 104.69 kg Zahira [facility] [place] [facility] 10-30-2024 01:00-0400 Diastolic blood pressure 80 mm[Hg] Zahira [facility] 10-30-2024 01:00-0400 Heart rate 82 /min Zahira Sandhu [place] [facility] 10-30-2024 01:00-0400 SaO2% (BldA) [Mass fraction] 99 % Zahira Sandhu [place] [facility] 10-30-2024 01:00-0400 Systolic blood pressure 138 mm[Hg] Zahira Sandhu [place] [facility] Encounters Encounter Date Encounter Type Care Provider Facility Start: 10-30-2024 General examination of patient Zahira Sandhu IN [facility] Start: 10-30-2024 Initial preventive medicine new patient 40-64yrs Zahira Sandhu IN [facility] Start: 07-16-2024 End: 07-16-2024 ambulatory Dank Griffin Facility: [facility] Start: 05-21-2024 End: 05-21-2024 ambulatory Dank Griffin Facility: [facility] Start: 12-26-2023 End: 12-26-2023 ambulatory Dank Griffin Facility: [facility] Start: 10-05-2023 End: 10-05-2023 ambulatory [facility] Not Available Start: 09-21-2023 End: 09-22-2023 ambulatory [facility] Not Available Start: 09-12-2023 ambulatory Dank Griffin Facility : [facility] Start: 08-29-2023 End: 08-29-2023 ambulatory KATHY REYNOSO Facility: [facility] Start: 06-27-2023 End: 06-27-2023 Lab Drop off Dank Griffin [facility] Start: 06-22-2023 End: 06-23-2023 Pre-admission assessment Luisana Garciad [facility] Start: 04-22-2022 End: 04-23-[address] PIETRO RENDON Facility:[facility] Start: 10-29-2021 End: 10-29-[address] PIETRO RENDON Facility:[facility] Start: 07-29-2021 End: 07-30-[address] PIETRO RENDON Facility:[facility] Start: 09-20-2017 Ambulatory BRODIE Yates [facility] Start: 09-20-2017 Ambulatory BRODIE Yates [facility] [place] Start: 08-30-2017 Ambulatory BRODIE Yates [facility] [place] Procedures Date Procedure Procedure Detail Performing Clinician Start: 06-13-2017 Hysterectomy Zahira thrasher Hysterectomy and estbean ateral salpingo-oophorectomy sample (specimen) Luisana Burgosdad Tonsillectomy Luisana Elena Plan of Treatment Date Care Activity Detail Author Start: 10-30-2024 urinalysis, dipstick [facility] Start: 10-30-2024 InPerson; Emp Physical [facility] [place] [facility] [place] [facility] Immunizations Immunization Date Immunization Notes Care Provider Fa cility 12-12-2020 SARS-CoV-2 (COVID-19 ) mRNA BNT-162b2 vax Basem Elena [facility] 11-20-2020 SARS-CoV-2 (COVID-19 ) mRNA BNT-162b2 vax Basem Elena [facility] Comment on above: Result Comment: 2022: TPV40 06-26-2020 diphtheria, tetanus toxoids and pertussis vaccine Z[place]ira Sandhu [place] [facility] 06-22-2015 tetanus toxoid, adsorbed Zahira Sandhu [place] [facility] Payers Date Payer Category Payer Private Health Insurance [id number] 1973 Unknown [id number] 2.16.84 [id number] 1973 Unknown [id number] 2.16.84 [id number] 1973 Unknown [id number] 2.16.84 [id number] 1973 Unknown [id number] 2.16.84 [id number] 1973 Unknown [id number] 2.16.84 [id number] 1973 Unknown [id number] 2.16.84 [id number] 1973 Unknown [id number] 2.16.84 [id number] 1973 Unknown [id number] 2.16.8 [id number] 1973 Unknown [id number] 2.16.8 [id number] 1973 Unknown [id number] 2.16.8 [id number] 1973 Unknown [id number] 2.16.8 [id number] 1973 Unknown [id number] 2.16.8 [id number] 1959 Unknown [id number] Self-pay [id number] Unknown UNKNOWN [id number] Social History Date Type Detail Facility Start: 05-23-2023 End: 06-27-2023 Tobacco smoking status Heavy tobacco smoker (finding) [facility] [place] Sex Assigned At Female [facility] Tobacco Smoking Stat us NHIS Current Every Day Smoker [place] - [facility] Sex Assigned At Unknown [place] [facility] Procedure Code Equipment Code Equipment Original Text Equi pment Identifier Dates Procedure Implant ([id number]) Clinical Notes 07-29-2021 to 06-05-2024 RadiologyRadiology Note Date & Type Note Facility 06-05-2024 Note Entered by INDER RENDON DO on June 05, 2024 08:12:52 EST From: PIETRO RENDON DO To: [id number] Sent: 06/05/2024 08:12:52 EST Subject: Medication Management Submitted: Complete:pramipexole (pramipexole 1.5 mg oral tablet) Signed by PIETRO RENDON DO 06/05/2024 08:12:00 EST Approved pramipexole (pramipexole 1.5 mg tablet) TAKE 1 TABLET BY MOUTH AT BEDTIME Qty: 30 tab(s) Days Supply: 30 Refills: 5 Substitutions Allowed Route To Pharmacy - [id number] Note from Pharmacy: This prescription was filled on 05/16/2024. Any refills authorized will be placed on file. From: [id number] To: PIETRO RENDON DO Sent: June 05, 2024 7:02:15 AM [employer] Subject: Medication Management Due: June 06, 2024 12:15:51 AM [employer] RECE[employer] On Hold Pending Signature Drug: pramipexole (pramipexole 1.5 mg oral tablet), TAKE 1 TABLET BY MOUTH AT BEDTIME Quantity: 30 tab(s) Days Supply: 30 Refills: 5 Substitutions Allowed Notes from Pharmacy: Dispensed Drug: pramipexole (pramipexole 1.5 mg oral tablet), TAKE 1 TABLET BY MOUTH AT BEDTIME Quantity: 30 tab(s) Days Supply: 30 Refills: 5 Substitutions Allowed Notes from Pharmacy: This prescription was filled on 05/16/2024. Any refills authorized will be placed on file. [facility] 05-21-2024 Note Patient Education Nutrition BMI for Adults Body mass index (BMI) is a number found using a person's weight and height. BMI can help tell how much of a person's weight is made up of fat. BMI does not measure body fat directly. It is used instead of tests that directly measure body fat, which can be difficult and expensive. What are BMI measurements used for? BMI is useful to: ??? Find out if your weight puts you at higher risk for medical problems. ??? Help recommend changes, such as in diet and exercise. This can help you reach a healthy weight. BMI screening can be done again to see if these changes are working. How is BMI calculated? Your height and weight are measured. The BMI is found from those numbers. This can be done with U.S. or metric measurements. Note that charts and online BMI calculators are available to help you find your BMI quickly and easily without doing these calculations. To calculate your BMI in U.S. measurements: 1. Measure your weight in pounds (lb). 2. Multiply the number of pounds by 703. ??? So, for an adult who weighs 150 lb, multiply that number by 703: 150 x 703, which equals 105,450. 3. Measure your height in inches. Then multiply that number by itself to get a measurement called inches squared. ??? So, for an adult who is 70 inches tall, the inches squared measurement is 70 inches x 70 inches, which equals 4,900 inches squared. 4. Divide the total from step 2 (number of lb x 703) by the total from step 3 (inches squared): 105,450 ? 4,900 = 21.5. This is your BMI. To calculate your BMI in metric measurements: 1. Measure your weight in kilograms (kg). ??? For this example, the weight is 70 kg. 2. Measure your height in meters (m). Then multiply that number by itself to get a measurement called meters squared. ??? So, for an adult who is 1.75 m tall, the meters squared measurement is 1.75 m x 1.75 m, which equals 3.1 meters squared. 3. Divide the number of kilograms (your weight) by the meters squared number. In this example: 70 ? 3.1 = 22.6. This is your BMI. What do the results mean? BMI charts are used to see if you are underweight, normal weight, overweight, or obese. The following guidelines will be used: ??? Underweight: BMI less than 18.5. ??? Normal weight: BMI between 18.5 and 24.9. ??? Overweight: BMI between 25 and 29.9. ??? Obese: BMI of 30 or above. BMI is a tool and cannot diagnose a condition. Talk with your health care provider about what your BMI means for you. Keep these notes in mind: ??? Weight includes fat and muscle. Someone with a muscular build, such as an athlete, may have a BMI that is higher than 24.9. In cases like these, BMI is not a correct measure of body fat. ??? If you have a BMI of 25 or higher, your provider may need to do more testing to find out if excess body fat is the cause. ??? BMI is measured the same way for males and females. Females usually have more body fat than males of the same height and weight. Where to find more information For more information about BMI, including tools to quickly find your BMI, go to: ??? Centers for Disease Control and Prevention: cdc.gov ??? [place] Heart Association: heart.org ??? National Heart, Lung, and Blood [place]: nhlbi.nih.gov This information is not intended to replace advice given to you by your health care provider. Make sure you discuss any questions you have with your health care provider. Document Revised: 02/17/2023 Document Reviewed: 02/10/2023 [employer] Patient Education ? 2023 [employer]. [facility] 12-01-2023 Note Entered by INDER RENDON DO on December 01, 2023 12:18:23 EDT From: PIETRO RENDON DO To: [id number] Sent: 12/01/2023 12:18:23 EDT Subject: Medication Management Submitted: Complete:pramipexole (pramipexole 1.5 mg oral tablet) Signed by PIETRO RENDON DO 12/01/2023 12:18:00 EDT Approved pramipexole (pramipexole 1.5 mg tablet) TAKE 1 TABLET BY MOUTH AT BEDTIME Qty: 30 tab(s) Days Supply: 30 Refills: 5 Substitutions Allowed Route To Pharmacy - [facility] From: [facility] To: PIETRO RENDON DO Sent: December 01, 2023 9:13:20 AM CDT Subject: Medication Management Due: December 02, 2023 12:06:54 AM CDT On Hold Pending Signature Drug: pramipexole (pramipexole 1.5 mg oral tablet), TAKE 1 TABLET BY MOUTH AT BEDTIME Quantity: 30 tab(s) Days Supply: 30 Refills: 5 Substitutions Allowed Notes from Pharmacy: Dispensed Drug: pramipexole (pramipexole 1.5 mg oral tablet), TAKE 1 TABLET BY MOUTH AT BEDTIME Quantity: 30 tab(s) Days Supply: 30 Refills: 5 Substitutions Allowed Notes from Pharmacy: [facility] 07-29-2021 Note PROCEDURE: XR FOOT R T MIN 3 VIEWS HISTORY: Pain in right foot COMPARISON: None. FINDINGS: BONES:No fracture, acute abnormality, or significant arthropathy. SOFT TISSUES:No visible soft tissue swelling. EFFUSION:None visible. OTHER: Negative. IMPRESSION: 1. No acute bone abnormality or significant degenerative changes. Electronically authenticated by: GONZALO MURRIETA Date: 2021-07-29 15:40 [facility] Evaluation + Plan note Future Appointments Appointment Date:06/27/2023 02:00:00 PM Scheduled Provider:Dank Griffin MD Location:[facility] Appointment Type: Open Future Scheduled TestsMA Mamm Screen w/CAD if perf and 3D Esteban 05/23/23 [facility] Evaluation + Plan note Future Appointments Appointment Date:12/26/2023 02:15:00 PM Scheduled Provider:Dank Griffin MD Location:[facility] Appointment Type: Open Future Scheduled TestsMA Mamm Screen w/CAD if perf and 3D Esteban 05/23/23 [facility] Evaluation note No assessment recorded. [place] [facility] History general Narrative - Reported No medical history recorded. Gynecological HistoryNo gynecological history recorded. Obstetrics History GPAL:G 0 P 0 0 0 0 [place] [facility] Hospital course Narrative No data available for this section [facility] Hospital Discharge instructions No data available for this section [facility] Progress note No data available for this section [facility] Summary Purpose Family History No Family History Records FoundNo Family History Records Found No data available for this section No data available for this section No Family History Records FoundNo Family History Records FoundNo Family History Records FoundNothing Reported. Advance Directives No Advanced Directives Records FoundNo Advanced Directives Records FoundNo Advanced Directives Records FoundNo Advanced Directives Records FoundNo Advanced Directives Records Found Additional Source Comments INFORMATION SOURCE (unrecogn ized section and content) DATE CREATED AUTHOR 12/01/[address] [facility] DATE CREATED AUTHOR AUTHOR'S ORGANIZ ATION 04/26/2022 [facility] DATE CREATED AUTHOR AUTHOR'S ORGANIZ ATION 10/07/2023 [facility] EPIC DATE CREATED AUTHOR AUTHOR'S ORGANIZ ATION 06/07/2024 [facility] DATE CREATED AUTHOR AUTHOR'S ORGANIZ ATION 07/17/2024 [facility] Patient Care team informatio n (unrecognized section and content) Personnel Name: Dank Griffin MD Address: Address: [facility]. [place] [address] Personnel Name: Dank Griffin MD [facility]: [facility] [place] FOR RECORDS PERTAINING TO PATIENTS WHO ARE OR HAVE BEEN ENROLLED IN A CHEMICAL DEPENDENCY/SUBSTANCEABUSE PROGRAM, SOME INFORMATION MAY BE OMITTED. This clinical summary was aggregated from multiple sources. Caution should be exercised in using it in the provision of clinical care. This summary normalizes information from multiple sources, and as a consequence, information in this document may materially change the coding, format and clinical context of patient data. In addition, data may be omitted in some cases. CLINICAL DECISIONS SHOULD BE BASED ON THE PRIMARY CLINICAL RECORDS. [employer] [facility]. provides no warranty or guarantee of the accuracy or completeness of information in this document.
--- NOTE | 2024-11-08 23:00 | ED_ITS ---
HPI - Extremity Problem General Chief complaint: Extremity Problem, Nontraumatic Stated complaint: RIGHT FOOT BLISTERED AND SWOLLEN Time Seen by Provider: 11/08/24 22:53 Source: patient Mode of arrival: walk-in Limitations: no limitations History of Present Illness HPI Narrative: The patient is a 49-year-old female who has a history of depression without history of diabetes mellitus who presents the emergency department with a red and painful foot. Patient did not notice symptoms until later this evening. She states that between her toes over the last couple days it has been dry and itchy. However today she noticed that her great toe and proximal portion of her toes were becoming red and painful. However by this evening when she got ready to go to bed she notices her entire top of her foot was red and was a little painful with range of motion. Pain is a 6 out of 10. Moving it makes it worse. Nothing makes it better. She has no pain in the ankle. Has never had a history of MRSA. No history of septic joint. Related Data Home Medications ?Medication ?Instructions ?Recorded ?Confirmed duloxetine 60 mg capsule,delayed 60 mg PO QDAY 5 11/08/24 release pramipexole 1.5 mg tablet 1.5 mg PO .qhs 11/08/2410/12 Previous Rx's ?Medication ?Instructions ?Recorded butenafine 1 % topical cream 1 applic topical BID 1 we ek #30 11/08/24 (Athlete's Foot (butenafine)) grams cephalexin 500 mg capsule 500 mg PO Q6H 7 days #28 cap s 11/08/24 hydrocodone 7.5 mg-acetaminophen 1 tab PO Q8H PRN pain #10 tabs 11/08/24 325 mg tablet mupirocin 2 % topical ointment 1 applic topical BID #2 2 grams 11/08/24 sulfamethoxazole 800 1 tab PO BID 7 days #14 tabs 11/08/24 mg-trimethoprim 160 mg tablet (Bactrim DS) Allergies Allergy/AdvReac Type Severity Reaction Status Date / Time No Known Drug Allergies Allergy Verified 11/08/24 22:28 Review of Systems ROS Narrative 10 Systems were reviewed, and unless not ed in the HPI, all other systems are reviewed, unremarkable, or noncontributory. PFSH PFSH Social History (Reviewed 11/09/24 @ 01:24 by JOSESITO Estrada Little interest or pleasure in doing things: not at all Feeling down, depressed, or hopeless: not at all Exam Narrative Exam Narrative: Prior to examining the patient, I have washed with hospital approved and provided Antiseptic Hand Risk Officer and have also applied gloves.? Prior to touching the patient, I asked for consent to examine the patient.? General: Alert and oriented, well nourished, mild distress. Eye: PERRL, EOMI, normal conjunctiva. HENT: Normocephalic, normal hearing, moist oral mucosa, no scleral icterus Musculoskeletal: Normal range of motion and strength, no tenderness or swelling. There is no tenderness to active or passive range of motion to the ankle. Skin: Skin is warm, dry and pink, no rashes or lesions. Tinea pedis between the right great toe and second toe as well as the second toe and the third toe. There is also red, warm, well-demarcated border all over the dorsal surface of the foot. It extends up to the ankle. There is no pain with range of motion to the ankle. In its greatest dimension it measures 22 cm x 14 cm. No fluctuance appreciated. Neurologic: Awake, alert, and oriented X3, CN II-XII intact. Psychiatric: Cooperative, appropriate mood and affect.? Following the conclusion of the examination, I have washed my hands thoroughly after removing examination gloves. Constitutional Vital Signs, click to edit/add: Last Vital Signs Temp 98.5 F 11/08/24 22:28 Pulse 104 H 11/08/24 22:28 Resp 20 11/08/24 22:28 BP 114/69 11/08/24 22:28 Pulse Ox 94 L 11/08/24 22:28 O2 Del Method Room Air 11/08/24 22:28 Course Course Hospital Course: Patient was seen and evaluated. Patient has no evidence of septic joint, abscess, or necrotizing fasciitis. Patient needs to have antibiotic therapy. She did not benefit any antibiotic therapy. She is not have any fever or chills. Her symptoms have only been for 1 day and therefore I think it safe for the patient to begin with oral antibiotic therapy. Vital Signs Vital signs: Vital Signs Temperature 98.5 F 11/08/24 22:28 Pulse Rate 104 H 11/08/24 22:28 Respiratory Rate 20 11/08/24 22:28 Blood Pressure 114/69 11/08/24 22:28 Pulse Oximetry 94 L 11/08/24 22:28 Oxygen Delivery Method Room Air 11/08/24 22:28 Temperature 98.5 F 11/08/24 22:28 Pulse Rate 104 H 11/08/24 22:28 Respiratory Rate 20 11/08/24 22:28 Blood Pressure 114/69 11/08/24 22:28 Pulse Oximetry 94 L 11/08/24 22:28 Oxygen Delivery Method Room Air 11/08/24 22:28 MDM - Extremity (Nontraumatic) MDM Narrative Medical decision making narrative: In summary the patient is a 49-year-old female presenting with right foot pain and redness. She appears to have evidence of cellulitis secondary to likely inoculation from tinea pedis and scratching. Patient was started on antibiotics while in the emergency department. Patient will machine operator picker 2 antibiotics, Keflex and Bactrim. In addition, the patient will machine operator picker analgesic medication, [place]. And the patient will machine operator picker 2 ointments, Lotrimin and mupirocin. Patient will slathered the ointments between the toes and then take oral antibiotics for the cellulitis. If patient develops a fever, symptoms worsen or change, she needs to return to the ER soon as possible for further evaluation and treatment. Patient expresses verbal understanding. Differential Diagnosis Differential diagnosis: Likely cellulitis, superficial thrombophlebitis, lower extremity edema and other (Tinea pedis, septic joint) Medical Records Attestation: I reviewed the patient's medical records. Discharge Plan Discharge Chief Complaint: Extremity Problem, Nontraumatic Clinical Impression: Cellulitis of foot, right, Tinea pedis Patient Disposition: Home, Self-Care Time of Disposition Decision: 23:06 Condition: Good Mode of Transportation: Private Vehicle Prescriptions / Home Meds: New cephalexin 500 mg capsule 500 mg PO Q6H 7 Days Qty: 28 0RF sulfamethoxazole-trimethoprim [Bactrim DS] 800-160 mg tablet 1 tab PO BID 7 Days Qty: 14 0RF hydrocodone-acetaminophen 7.5-325 mg tablet 1 tab PO Q8H PRN (Reason: pain) Qty: 10 0RF mupirocin 2 % ointment 1 applic topical BID Qty: 22 0RF butenafine [Athlete's Foot (butenafine)] 1 % cream 1 applic topical BID 7 Days Qty: 30 0RF No Action duloxetine 60 mg capsule,delayed release(DR/EC) 60 mg PO QDAY pramipexole 1.5 mg tablet 1.5 mg PO .qhs Print Language: Green[place]ic Instructions: Cellulitis (ED), Skin Yeast Infection (ED) Additional Instructions: Please take all of your antibiotics as directed. Please use the cream in between your toes twice daily. Do not stop your antibiotics prematurely. If the redness goes outside of the drawn line by 2 finger lengths then you should return to the emergency department. Please also return if you develop a fever or chills. Thank you very much for providing me the opportunity to care for you. Enjoy your weekend. Referrals: ANGEL OLIVER [Primary Care Provider, Family Practice] - 1 week Discharge Date/Time: 11/08/24 23:26
[2024-11-08] MEDS: SULFAMETHOXAZOLE/TRIMETHOPRIM 800-160 MG TABLET 1 TAB PO (23:19)
[2024-11-08] MEDS: HYDROCODONE/ACETAMINOPHEN 7.5-325 MG/15 ML CUP 7.5 MG PO (23:19)
[2024-11-08] MEDS: CEPHALEXIN 500 MG CAPSULE PO (23:20)
== END 2024-11-08 23:26 | disposition home or self-care (01) ==
PROVIDERS: Emergency Provider Emergency Medicine; PCP Family Medicine
DX: L03.115 Cellulitis of right lower limb (principal); B35.3 Tinea pedis; M79.671 Pain in right foot; L53.9 Erythematous condition, unspecified
CPT/HCPCS: 99284

== ENCOUNTER 2025-04-01 17:25 | Emergency (ER) | payer BC, SELFPAY ==
--- OUTSIDE RECORDS SUMMARY | 2025-04-01 17:34 | XMS_ITS | CCD ---
Author Organization [facility] Care Team Providers Care Cold Roll Operator Name Role Phone BRODIE PETERSEN Unavailable Unavailable HOUSE, PIETRO Garrison Unavailable Unavailable MAYERSON, BRODIE Yates Unavailable Unavailable VAJAPEY, MATA Unavailable Unavailable MAYERSON, BRODIE L Unavailable Unavailable MAYERSON, BRODIE L Unavailable Unavailable HOUSE, DR WESTBROOK Primary Care Unavailable MARKER, DR MOLINA Attending Unavailable MARKER, DR MOLINA Consulting Unavailable MARKER, DR MOLINA Admitting Unavailable DELVIS, ANGELICA Consulting Unavailable HOUSE, DR WESTBROOK Primary Care Unavailable HOUSE, DR WESTBROOK Admitting Unavailable HOUSE, DR WESTBROOK Attending Unavailable HOUSE, DR WESTBROOK Consulting Unavailable LIT, DR GONZALO Estrada Consulting Unavailable HOUSE, DR WESTBROOK Admitting Unavailable HOUSE, DR WESTBROOK Attending Unavailable HOUSE, DR WESTBROOK Consulting Unavailable HOUSE, DR WESTBROOK Primary Care Unavailable LIT, DR GONZALO Estrada Consulting Unavailable Dank Griffin Primary Care Physician [phone] NO FAMILY, PHYSICIAN Primary Care Provider Unava Varun Watkins MD Attending Provider Angeles SYED-Kathy CORRIGAN Primary Care Provider Kathy Reynoso Primary Care Unavailable Varun Woods Attending Unavailable Varun Woods Admitting Unavailable Dank Griffin MD Primary Care Provider TOBIAS LIN Attending Unavailable KATHY REYNOSO Referring Unavailable TOBIAS LIN Attending Unavailable Jhonny CASTRO-Nilda Vanessa Attending Provider KATHY REYNOSO Attending Unavailable KATHY REYNOSO Attending Unavailable Dank Griffin Attending Unavailable Dank Griffin Attending Unavailable Dank Griffin Attending Unavailable Dank Griffin Attending Unavailable KATHY REYNOSO Attending Unavailable KATHY REYNOSO Attending Unavailable Allergies Allergy Classification Reported Allergen(s) Allergy Type Date of Onset Reaction(s) Facility (1 source) No Known Medication Allergies; Translations: [No Known Medication Allergies] Propensity to adverse reactions (disorder) [facility] Repository Medications Current Medications Medication Drug Class(es) Dates Sig (Normalized) Sig (Original) DULoxetine 60 mg delayed release oral capsule (11 sources) Serotonin and Norepinephrine Reuptake Inhibitor Start: 05-23-20 Duloxetine 60 mg capsule,delayed release(DR/EC) Active MG PO December 17, 2024 12:00am Complies with drug therapy fluticasone propionate 0.05 mg/actuat metered dose nasal spray (1 source) Corticosteroid fluticasone prop ionate 50 mcg/actuation nasal spray,suspension spray once into each nostril TWICE DAILY active Not Available Not Available Not Available hydroCHLOROthiazide 12.5 mg oral capsule (8 sources) Thiazide Diuretic Start: 05-23-20 End: 06-04-20 hydroCHLOROthiazide (Microzide) 12.5 MG capsule 09/12/2023 Active methylPREDNISolone (5 sources) Corticosteroid Start: 10-05-19 methylPREDNISolone (Medrol Dospak) 4 MG tablets Indications: SI (sacroiliac) pain Follow schedule on package instructions 21 tablet 10/05/2023 Active phentermine hydrochloride 37.5 mg oral capsule (3 sources) Sympathomimetic Amine Anorectic Start: 12-18-19 Phentermine 37.5 mg capsule Active MG PO December 17, 2024 12:00am Complies with drug therapy pramipexole dihydrochloride 1.5 mg oral tablet (11 sources) Nonergot Dopamine Agonist Start: 05-03-20 Pramipexole 1.5 mg tablet Active MG PO December 17, 2024 12:00am Complies with drug therapy {11 (varenicline 0.5 MG Oral Tablet [Chantix]) / 42 (varenicline 1 MG Oral Tablet [Chantix]) } Pack [Chantix First Month of Therapy] (2 sources) Partial Cholinergic Nicotinic Agonist Start: 06-27-19 24 take 1 tablet by mouth twice daily Chantix 1 mg oral tablet 1 mg = 1 tab(s), Oral, BID, Take after the starter dose., # 180 tab(s), Refills(s) 1, Pharmacy: [id number], 165.5, cm, 06/27/23 14:04:00 EST, Height/Length [...] food, # 60 EA, Refills(s) 0, Pharmacy: [id number], 165.5, cm, 06/27/23 14:04:00 EST, Height/Length [...] Translations: [Depressive disorder] Onset: 11-02-2021 Chronic Other acquired deformities (3 sources) Contracture of joint of left ankle; Translations: [Contracture, left ankle] 01-07-2025 Chronic Other circulatory disease (1 source) Elevated blood-pressure reading without diagnosis of hypertension 05-23-2023 Episodic Other connective tissue disease (3 sources) History of arthrodesis of ankle; Translations: [Arthrodesis status] 12-17-2024 Episodic Other connective tissue disease (2 sources) Calcaneal spur of left foot; Translations: [Calcaneal spur, left foot] 01-07-2025 Episodic Other connective tissue disease (3 sources) Plantar fasciitis; Translations: [Plantar fascial fibromatosis] 01-07-2025 Episodic Other hereditary and degenerative nervous system conditions (1 source) Restless legs syndrome; Translations: [RESTLESS LEGS SYNDROME] Onset: 11-02-2021 Chronic Other hereditary and degenerative nervous system conditions (6 sources) Restless legs; Translations: [Restless legs syndrome] Onset: 06-04-2024 05-23-2023 Chronic Other skin disorders (1 source) Localized swelling, mass and lump, unspecified; Translations: [Localized swelling, mass and lump, unspecified] Onset: 09-20-2017 Episodic Other skin disorders (4 sources) Bilateral localized swelling of lower legs; Translations: [Localized swelling, mass and lump, lower limb, bilateral] 12-17-2024 Episodic Residual codes; unclassified (2 sources) Pitting [...] Unclassified (3 sources) Patient encounter status 05-23-2023 Varicose veins of lower extremity (1 source) Varicose veins of bilateral lower extremities with pain; Translations: [Varicose veins of bilateral lower extremities with pain] Onset: 12-27-2024 Episodic Past or Other Problems Problem Classification Problem [...] Test Name Value Interpretation Reference Range Facility Ambulatory Visit Summaryon 0 01-24-2025 Ambulatory Visit Summary Ambulatory Visit Summary MINDYALEJANDRO :1975 Visit Date:01/24/2025 Ambulatory Visit Instructions Your Diagnosis Encounter for weight management BMI 36.0-36.9,adult Smoker Obesity (BMI 30-39.9) Your Care Team Attending Physician - KATHY REYNOSO CNP Primary Care Physician - KATHY REYNOSO CNP This Is Your Medications List phentermine (Adipex-P 37.5 mg oral capsule) Contact prescribing physician if questions or concerns duloxetine (duloxetine 60 mg oral delayed release capsule) pramipexole (pramipexole 1.5 mg Tab) Procedures Performed Hysterectomy and bilateral salpingo-oophorectomy sample, Tonsillectomy. Discharge Vitals Temperature (Oral) 36.8 ???C Heart Rate (Peripheral) 82 Respiratory Rate 18 Blood Pressure 124/82 Height 165.5 cm Height 65 in Weight 100.6 kg Weight 221.785 lb BMI 36.73 What to do next Scheduled Follow-Up Appointments 2024 9:40 AM EDT With: KATHY RYENOSO CNP Where: [facility] [address] [place] [phone] You Need to Schedule the Following Appointments Follow Up with KATHY REYNOSO CNP, FAM When: Within 4 weeks Comments: weight management Where: [address] [place] [phone] Business (1) Medications What How Much When Instructions Unchanged phentermine (Adipex-P 37.5 mg oral capsule) 1 Capsules By Mouth Every day Pickup at [facility] Unchanged duloxetine (duloxetine 60 mg oral delayed release capsule) 1 Capsules By Mouth Every day Contact prescribing physician if questions or concerns Unchanged pramipexole (pramipexole 1.5 mg Tab) TAKE 1 TABLET BY MOUTH AT BEDTIME Contact prescribing physician if questions or concerns Pharmacy Information [facility]: [address] [place], [place] [id number] [phone] Allergies No Known Medication Allergies Problems Ongoing - Any problem that you are currently receiving treatment for. BMI 36.0-36.9,adult Cellulitis of right foot Eustachian tube dysfunction HLD (hyperlipidemia) HTN (hypertension) Low back pain Mixed anxiety and depressive disorder Obesity (BMI 30-39.9) Osteochondroma of bone Restless legs Sleep disorder Smoker Tinea pedis Patient Survey You may receive a survey via text or e-mail asking about your office visit. Please share your experience with us by completing your survey. We appreciate your feedback and thank you for choosing us for your care. Patient Portal You may access all of your results and other medical record information on our secure patient portal. If you are not signed up for this yet, please contact [employer] at [phone] to get signed up today. Language Information Language assistance services are available as needed. [place] Family Medicine Office/Clini c Noteon 01-24-2025 Family Medicine Office/Clinic Note Family Medicine Office/Clinic Note Chief Complaint Weight Management The patient is concerned about her weight and seeks management options. HPI Staff Pt presents today for 4wk weight management follow up. Started on phentermine Sleeping well:Yes, 6-8 hours Chest pain:No Tremors:No Headaches:No Heart fluttering:No Blurred Vision:No Starting Weight: 230lbs Weight last visit: 224lbs Weight this visit: 221lbs Med Agreement UTD 12/24/24 UDS UTD 12/24/24 KRISTIN pt was referred to podiatry. DX w/plantar fasciatus. Received injections, pain has subsided. Did have US of legs done @ [facility] for [place]. History of Present Illness 49-year-old female presenting with weight management concerns. She has been actively trying to manage her weight by being more conscious of her diet, including reducing bread intake, although not completely eliminating it. She has lost 3 pounds recently and is on medication to assist with weight loss, which she plans to continue as she has not experienced any adverse effects. The patient has been on the current weight management medication for two months and is starting her third month. She has been advised that if her progress continues positively, her follow-up appointments may be extended to every three months instead of monthly. Review of Systems PHQ Score Initial Depression Screen Score: 0 SCORE - General: Reports weight loss of 3 pounds, denies any adverse effects from medication. - Respiratory: Denies dyspnea, cough, or wheezing. Physical Exam Vitals & Measurements T: 36.8 ???C(Oral) HR: 82(Peripheral) RR: 18 BP: 124/82 SpO2: 99% HT: 165.5 cm HT: 65 in WT: 221.785 lb WT: 100.6 kg BMI: 36.73 General: alert, no acute distress Cardiovascular: regular rate and rhythm, normal peripheral perfusion Respiratory: Lungs CTA, respirations non labored Extremities: no deformity, no trauma Neurological: oriented x 4, LOC appropriate for age speech normal Assessment/Plan 1. Encounter for weight management (Z76.89: Persons encountering health services in other specified circumstances) - Monitor weight loss progress and adjust treatment plan as necessary. - Discussed the importance of maintaining regular follow-up appointments to ensure accountability and support. - Medication Agreement UTD - OARRS reviewed and found to be appropriate - F/U in 4 weeks 2. BMI 36.0-36.9,adult (Z68.36: Body mass index [BMI] 36.0-36.9, adult) BMI 36.73 3. Smoker (F17.200: Nicotine dependence, unspecified, uncomplicated) Encouraged to continue as a non-smoker 4. Obesity (BMI 30-39.9) (E66.9: Obesity, unspecified) - Continue current weight management medication as the patient is tolerating it well without side effects. - Encourage dietary modifications, including mindful eating and reducing bread intake. - Plan to extend follow-up visits to every three months if progress continues positively. Orders: phentermine, 37.5 mg = 1 cap(s), Oral, Daily, # 30 cap(s), Refills(s) 0, Pharmacy: [id number], 165.5, cm, 01/24/25 8:40:00 EDT, Height/Length Dosing, 100.6, kg, 01/24/25 8:40:00 EDT, Weight Dosing Follow-up With When Contact Information KATHY REYNOSO CNP, FAM Within [address] [place] [phone] Business (1) Additional Instructions: weight management Patient Education Budget-Friendly Healthy Eating Problem List/Past Medical History Ongoing BMI 36.0-36.9,adult Cellulitis of right foot Eustachian tube dysfunction HLD (hyperlipidemia) HTN (hypertension) Low back pain Mixed anxiety and depressive disorder Obesity (BMI 30-39.9) Osteochondroma of bone Restless legs Sleep disorder Smoker Tinea pedis Historical No qualifying data Procedure/Surgical History Hysterectomy and bilateral salpingo-oophorectomy sample, Tonsillectomy. Medications Adipex-P 37.5 mg oral capsule, 37.5 mg= 1 cap(s), Oral, Daily duloxetine 60 mg oral delayed release capsule, 60 mg= 1 cap(s), Oral, Daily pramipexole 1.5 mg Tab Allergies No Known Medication Allergies Social History Alcohol Never., 05/21/2024 Substance Abuse Never., 05/21/2024 Tobacco 10 or more cigarettes (1/2 pack or more)/day in last 30 days Tobacco Use:. Never Smokeless Tobacco Use:. Cigarettes, Household tobacco concerns: No. Yes, 01/24/2025 Family History Alcoholism: Mother and Father. Anxiety: Father. Depression: Father. Hyperlipidemia: Mother and Father. Hypertension: Mother and Father. Immunizations Vaccine Date Status Comments SARS-CoV-2 (COVID-19) mRNA BNT-162b2 vax 12/12/2020 Recorded SARS-CoV-2 (COVID-19) mRNA BNT-162b2 vax 11/20/2020 Recorded 2023-05-11: [id number] Normal [facility] Comment on above: Result Comment: Elec tronically Signed By: KATHY REYNOSO CNP\.br\Date and Time Signed: 01/24/25 09:23 EDT US venous duplex LE BIon US venous duplex [facility] [place] [address] Ultrasound Report Signed Patient: Alejandro Hills MR#: [id number] 94 : 1975 Acct:[id number] Age/Sex: 49 / F ADM Date: 12/27/24 Loc: Room: Type: [facility] Attending Dr: Varun Woods MD Ordering Provider: Varun Woods MD Date of Service: 12/27/24 US/US venous duplex BI: I83.813 - Varicose veins of bilateral lower extremities w... Copies to: Varun Woods MD Bilateral lower extremity full functional venous duplex examination. Indication for procedure: Swollen legs PROCEDURE: Color-flow duplex scanning is used to interrogate the venous anatomy of both lower extremities. There is no evidence for deep vein thrombosis in either leg. Bilaterally the common femoral vein, femoral vein, popliteal vein show good compressibility, color-flow, and augmentation. The patient's right leg there is severe saphenofemoral incompetence. There is greater than 5 seconds of reflux in the common femoral vein emptying into the greater saphenous vein through the saphenofemoral junction. There is mild reflux at the origin of the lesser saphenous vein but it is on sustained. Right greater saphenous vein is dilated just below the saphenofemoral junction at almost 9 mm. It is then normal in size throughout the rest of its course to the leg. It gives rise to extensive varicosities that are 2 3 to 4 mm in diameter. Lesser saphenous vein is slightly dilated at just under 8 mm near the knee and remains 5 mm in the mid calf. Left leg shows severe saphenofemoral incompetence with greater than 5 seconds reflux at the saphenofemoral junction. There is also greater than 5 seconds of reflux at the junction of the lesser saphenous vein to the popliteal vein. The left greater saphenous vein is dilated at 9 mm below the saphenofemoral junction. It then becomes normal in size throughout the rest of the leg. It gives rise to varicosities that are 3 to 4 mm in diameter. The lesser saphenous vein is 7 mm at its origin and then remains 4 mm throughout its course. US/US venous duplex LE IMPRESSION: No evidence for deep vein thrombosis in either leg. There is severe saphenofemoral incompetence bilaterally. The origin of the lesser saphenous vein is incompetent. Extensive secondary varicosities are noted in both legs. Impression dictated by: Varun Woods M.D. 12/28/2024 1:50 PM Dictation Location: [place] [address] Tech: Anjana Ch Transcribed By: SUZANNE 12/28/24 1350 Dictated By: Varun Woods MD 12/28/24 1347 Signed By: 12/28/24 1350 Normal [facility] Ambulatory Visit Summaryon 0 12-24-2024 Ambulatory Visit Summary Ambulatory Visit Summary ALEJANDRO HILLS :1975 Visit Date:12/24/2024 Ambulatory Visit Instructions Your Diagnosis Encounter for weight management Obesity (BMI 30-39.9) Smoker Your Care Team Attending Physician - KATHY REYNOSO CNP Primary Care Physician - Dank Griffin MD This Is Your Medications List duloxetine (duloxetine 60 mg oral delayed release capsule) phentermine (Adipex-P 37.5 mg oral capsule) pramipexole (pramipexole 1.5 mg Tab) Procedures Performed Hysterectomy and bilateral salpingo-oophorectomy sample, Tonsillectomy. Discharge Vitals Temperature (Oral) 36.6 ???C Heart Rate (Peripheral) 84 Respiratory Rate 20 Blood Pressure 132/82 Height 165.5 cm Height 65 in Weight 101.9 kg Weight 224.651 lb BMI 37.2 What to do next Scheduled Follow-Up Appointments 2024 8:40 AM EDT With: KATHY REYNOSO CNP Where: [facility] [place] [address] [place] [phone]- You Need to Schedule the Following Appointments Follow Up with KATHY REYNOSO CNP, FAM When: Within 4 weeks Comments: Weight Management Where: [address] [place] [phone] Business (1) Medications What How Much When Instructions Unchanged duloxetine (duloxetine 60 mg oral delayed release capsule) 1 Capsules By Mouth Every day Unchanged phentermine (Adipex-P 37.5 mg oral capsule) 1 Capsules By Mouth Every day Unchanged pramipexole (pramipexole 1.5 mg Tab) TAKE 1 TABLET BY MOUTH AT BEDTIME Allergies No Known Medication Allergies Problems Ongoing - Any problem that you are currently receiving treatment for. Cellulitis of right foot Eustachian tube dysfunction HLD (hyperlipidemia) HTN (hypertension) Low back pain Mixed anxiety and depressive disorder Obesity (BMI 30-39.9) Osteochondroma of bone Restless legs Sleep disorder Smoker Tinea pedis Patient Survey You may receive a survey via text or e-mail asking about your office visit. Please share your experience with us by completing your survey. We appreciate your feedback and thank you for choosing us for your care. Patient Portal You may access all of your results and other medical record information on our secure patient portal. If you are not signed up for this yet, please contact [employer] at [phone] to get signed up today. Language Information Language assistance services are available as needed. Normal [facility] Family Medicine Office/Clini c Noteon 12-24-2024 Family Medicine Office/Clinic Note Family Medicine Office/Clinic Note Chief Complaint ADHD Follow Up The patient presents for weight management. HPI Staff Dr Griffin pt. Presenting today for 1m follow up. *Adipex initiated @ [facility] for weight loss. Sleeping well:Yes, 6-8 hours Chest pain:No Tremors:No Headaches:No Heart fluttering:No Blurred Vision:No Starting Weight: 230.6lbs Weight this visit: 224,65.lbs Med agreement & drug screen do need updated. History of Present Illness 49-year-old female presenting with weight management concerns. She was started on phentermine by Dr. Griffin last month and has lost 6 pounds since then. Her ultimate goal is to reach a weight of 160-165 pounds, which was her weight before undergoing a hysterectomy in 2018. The patient reports engaging in some physical activity, including swimming, and is following dietary recommendations similar to the Scint-X diet, focusing on portion control. She acknowledges occasional indulgence in non-dietary foods but is mindful of portion sizes. She reports left heel pain, particularly in the morning, which she attributes to plantar fasciitis. The pain is severe upon waking and improves with movement. She has not yet consulted a contracts paralegal but is considering a referral for further evaluation and management. Review of Systems PHQ Score Initial Depression Screen Score: 0 SCORE - Musculoskeletal: Reports heel pain, particularly in the morning, improving with movement. - General: Denies any side effects from phentermine, such as dry mouth. Physical Exam Vitals & Measurements T: 36.6 ???C(Oral) HR: 84(Peripheral) RR: 20 BP: 132/82 SpO2: 98% HT: 165.5 cm HT: 65 in WT: 224.651 lb WT: 101.9 kg BMI: 37.2 General: alert, no acute distress Cardiovascular: regular rate and rhythm, normal peripheral perfusion Respiratory: Lungs CTA, respirations non labored Extremities: no deformity, no trauma Neurological: oriented x 4, LOC appropriate for age speech normal Assessment/Plan 1. Encounter for weight management (Z76.89: Persons encountering health services in other specified circumstances) - Continue phentermine as prescribed, with a follow-up in four weeks to monitor progress. - Encourage adherence to dietary recommendations and portion control. - Recommend regular physical activity, including swimming. - OARRS reviewed and found to be appropriate - Medication Agreement & UDS completed today in the office - F/U in 4 weeks Ordered: Drug Screen POC [id number] 2. Foot pain, left (M79.672: Pain in left foot) - Recommend referral to a contracts paralegal for further evaluation and management. - Suggest using a tennis ball for foot exercises to alleviate symptoms. Or[place] [facility] [place] Ambulatory Referral 3. Obesity (BMI 30-39.9) (E66.9: Obesity, unspecified) - Monitor weight loss progress with a goal of reaching 160-165 pounds. - Discussed the importance of lifestyle modifications, including diet and exercise. 4. Smoker (F17.200: Nicotine dependence, unspecified, uncomplicated) - Smoking history noted, but no specific cessation plan discussed during this visit. 5. BMI 37.0-37.9, adult (Z68.37: Body mass index [BMI] 37.0-37.9, adult) BMI 37.2 Orders: phentermine, 37.5 mg = 1 cap(s), Oral, Daily, # 30 cap(s), Refills(s) 0, Pharmacy: [facility], 165.5, cm, 12/24/24 15:30:00 EDT, Height/Length Dosing, 101.9, kg, 12/24/24 15:30:00 EDT, Weight Dosing Follow-up With When Contact Information ANGELES WOODS, DAYAN HERRMANN Within [address] [place] [phone] Business (1) Additional Instructions: Weight Management Patient Education Foot Pain Problem List/Past Medical History Ongoing BMI 37.0-37.9, adult Cellulitis of right foot Eustachian tube dysfunction HLD (hyperlipidemia) HTN (hypertension) Low back pain Mixed anxiety and depressive disorder Obesity (BMI 30-39.9) Osteochondroma of bone Restless legs Sleep disorder Smoker Tinea pedis Historical No qualifying data Procedure/Surgical History Hysterectomy and bilateral salpingo-oophorectomy sample, Tonsillectomy. Medications Adipex-P 37.5 mg oral capsule, 37.5 mg= 1 cap(s), Oral, Daily duloxetine 60 mg oral delayed release capsule, 60 mg= 1 cap(s), Oral, Daily pramipexole 1.5 mg Tab Allergies No Known Medication Allergies Social History Alcohol Never., 05/21/2024 Substance Abuse Never., 05/21/2024 Tobacco 10 or more cigarettes (1/2 pack or more)/day in last 30 days Tobacco Use:. Never Smokeless Tobacco Use:. Cigarettes, Household tobacco concerns: No. Yes, 12/24/2024 Family History Alcoholism: Mother and Father. Anxiety: Father. Depression: Father. Hyperlipidemia: Mother and Father. Hypertension: Mother and Father. Immunizations Vaccine Date Status Comments SARS-CoV-2 (COVID-19) mRNA BNT-162b2 vax 12/12/2020 Recorded SARS-CoV-2 (COVID-19) mRNA BNT-162b2 vax 11/20/2020 Recorded 2023-05-11: [id number] Lab Resul (more content not included)... Normal [facility] Comment on above: Result Comment: Elec tronically Signed By: KATHY REYNOSO CNP\.br\Date and Time Signed: 12/24/24 17:15 EDT Ambulatory Visit Summaryon 0 11-26-2024 Ambulatory Visit Summary Ambulatory Visit Summary ALEJANDRO HILLS :1975 Visit Date:11/26/2024 Ambulatory Visit Instructions Your Diagnosis Mixed anxiety and depressive disorder Primary hypertension Localized edema Polyphagia Anesthesia of skin Your Care Team Attending Physician - Dank Griffin MD Primary Care Physician - Dank Griffin MD This Is Your Medications List phentermine (Adipex-P 37.5 mg oral capsule) Contact prescribing physician if questions or concerns duloxetine (duloxetine 60 mg oral delayed release capsule) fluticasone nasal (Flonase 0.05 mg/inh [place]) [Image Removed: STOP]Stop taking these medications hydrochlorothiazide (hydrochlorothiazide 12.5 mg Cap) pramipexole (pramipexole 1.5 mg Tab) Procedures Performed Hysterectomy and bilateral salpingo-oophorectomy sample, Tonsillectomy. Discharge Vitals Temperature (Oral) 36.2 ???C Heart Rate (Peripheral) 91 Respiratory Rate 18 Blood Pressure 134/86 Height 165.5 cm Height 65 in Weight 104.6 kg Weight 230.603 lb BMI 38.19 What to do next Scheduled Follow-Up Appointments Tuesday 4:40 PM EDT With: Dank Griffin MD Where: [address] [address]- Someone Will Contact You Regarding These Appointments [facility] [place] Ambulatory Referral, Vascular Surgery, 11/26/24 17:33:00 EDT, Mixed anxiety and depressive disorder Primary hypertension Localized edema Polyphagia Anesthesia of skin Medications What How Much When Why Instructions New phentermine (Adipex-P 37.5 mg oral capsule) 1 Capsules By Mouth Every day Pickup at [facility] Unchanged duloxetine (duloxetine 60 mg oral delayed release capsule) 1 Capsules By Mouth Every day Duration: 14 Days Contact prescribing physician if questions or concerns Unchanged fluticasone nasal (Flonase 0.05 mg/ inh [place]) 1 Sprays Nasal Inhalation 2 times a day Eustachian tube dysfunction BMI 36.0-36.9,adult Obesity (BMI 30-39.9) Smoker each nostril Contact prescribing physician if questions or concerns Pharmacy Information [facility]: [address] [place], [place] [id number] [phone] What How Much When Comments Stop Taking hydrochlorothiazide (hydrochlorothiazide 12.5 mg Cap) See instructions TAKE 1 CAPSULE BY MOUTH DAILY Stop Taking pramipexole (pramipexole 1.5 mg Tab) 1 Tablets By Mouth Every day Allergies No Known Medication Allergies Problems Ongoing - Any problem that you are currently receiving treatment for. Cellulitis of right foot Eustachian tube dysfunction HLD (hyperlipidemia) HTN (hypertension) Low back pain Mixed anxiety and depressive disorder Obesity (BMI 30-39.9) Osteochondroma of bone Restless legs Sleep disorder Smoker Tinea pedis Patient Survey You may receive a survey via text or e-mail asking about your office visit. Please share your experience with us by completing your survey. We appreciate your feedback and thank you for choosing us for your care. Education Materials Hypertension, Adult High blood pressure (hypertension) is when the force of blood pumping through the arteries is too strong. The arteries are the blood vessels that carry blood from the heart throughout the body. Hypertension forces the heart to work harder to pump blood and may cause arteries to become narrow or stiff. Untreated or uncontrolled hypertension can lead to a heart attack, heart failure, a stroke, kidney disease, and other problems. A blood pressure reading consists of a higher number over a lower number. Ideally, your blood pressure should be below 120/80. The first ( top ) number is called the systolic pressure. It is a measure of the pressure in your arteries as your heart beats. The second ( bottom ) number is called the diastolic pressure. It is a measure of the pressure in your arteries as the heart relaxes. What are the causes? The exact cause of this condition is not known. There are some conditions that result in high blood pressure. What increases the risk? Certain factors may make you more likely to develop high blood pressure. Some of these risk factors are under your control, including: ??? Smoking. ??? Not getting enough exercise or physical activity. ??? Being overweight. ??? Having too much fat, sugar, calories, or salt (sodium) in your diet. ??? Drinking too much alcohol. Other risk factors include: ??? Having a personal history of heart disease, diabetes, high cholesterol, or kidney disease. ??? Stress. ??? Having a family history of high blood pressure and high cholesterol. ??? Having obstructive sleep apnea. ??? Age. The risk increases with age. What are the signs or symptoms? High blood pressure may not cause symptoms. Very high blood pressure (hypertensive crisis) may cause: ??? Headache. ??? Fast or irregular h (more content not included)... Normal [facility] Family Medicine Office/Clini c Noteon 11-26-2024 Family Medicine Office/Clinic Note Family Medicine Office/Clinic Note Chief Complaint The patient reports concerns about ankle swelling and weight gain. HPI Staff Alejandro is a 49 year old female presenting with 3 month f/u Patient is here for follow up on hypertension. How often are you checking your blood pressure? occasionally What are your average readings? 120/84 Yearly BMP: _ Needs refills on Duloxetine already proposed in chart Ankles swelling started 2 years ago History of Present Illness - The patient is a 49-year-old female presenting with ankle swelling and weight management. - Peripheral edema: Reports left ankle swelling worsening by bedtime. Evaluated by press tender short goods but found them unhelpful. Swelling is non-pitting. Inconsistent with hydrochlorothiazide, which is ineffective for swelling. - Weight gain: Active lifestyle, attempts dietary control, but continues to gain weight. Interested in weight loss interventions. - Numbness in thighs: Experiences numbness in the front of thighs, resolving upon sitting. Occurs with tight belt, suspected femoral nerve compression. - Mixed anxiety and depressive disorder: Reports doing well with management. - Primary hypertension: History of hypertension, inconsistent with hydrochlorothiazide. - Weight management: Discussed exercise plan including 4-5 days of physical activity and weight training. - Dietary recommendations: Advised to follow the Scint-X Diet. Review of Systems PHQ Score Initial Depression Screen Score: 0 SCORE Physical Exam Vitals & Measurements T: 36.2 ???C(Oral) HR: 91(Peripheral) RR: 18 BP: 134/86 SpO2: 97% HT: 165.5 cm HT: 65 in WT: 104.6 kg WT: 230.603 lb BMI: 38.19 General: alert, no acute distress ENMT: oral mucosa moist Cardiovascular: Regular rate and rhythm, normal peripheral perfusion Respiratory: Lungs clear to auscultation, respirations non labored Extremities: left ankle swelling, non-pitting edema, no trauma Neurological: oriented x 4, level of consciousness appropriate for age, CN II-XII intact, motor strength equal & normal bilaterally, speech normal, numbness in the front of thighs when standing Abdomen: Soft, Non-tender, Non-distended, + Bowel sounds Assessment/Plan 1. Mixed anxiety and depressive disorder (F41.8: Other specified anxiety disorders) - Continue current management as the patient reports doing well. 2. Primary hypertension (I10: Essential (primary) hypertension) - Encourage consistent use of hydrochlorothiazide to manage blood pressure and potentially reduce edema. 3. Localized edema (R60.0) - Consider referral to vascular specialist for further evaluation and vein mapping. 4. Polyphagia (R63.2) - Initiate Adipex for weight loss, monitor progress monthly due to its status as a controlled substance. - Implement exercise plan with 4-5 days of physical activity and weight training. - Follow the Scint-X Diet for dietary management. 5. Anesthesia of skin (R20.0) - Monitor symptoms and consider further evaluation if symptoms persist or worsen. Orders: phentermine, 37.5 mg = 1 cap(s), Oral, Daily, # 30 cap(s), Refills(s) 0, Pharmacy: [facility], 165.5, cm, 11/26/24 17:11:00 EDT, Height/Length Dosing, 104.6, kg, 11/26/24 17:11:00 EDT, Weight Dosing - 49-year-old female with a history of mixed anxiety and depressive disorder presenting with ankle swelling and weight management. - Peripheral edema: Non-pitting edema in the left ankle, possibly related to vascular issues. Inconsistent use of hydrochlorothiazide noted. - Weight gain: Despite an active lifestyle, the patient continues to gain weight. Interested in pharmacological intervention and dietary changes. - Numbness in thighs: Likely related to femoral nerve compression, exacerbated by tight clothing. - Mixed anxiety and depressive disorder: Currently well-managed. - Primary hypertension: Inconsistent with medication adherence, specifically hydrochlorothiazide. I discussed with the patient the potential causes of her ankle swelling and the importance of consistent medication use for hypertension. We talked about the benefits of weight loss and the use of Adipex, along with dietary changes and an exercise plan. I recommended a referral to a vascular specialist for further evaluation of her edema. We also reviewed the management of her anxiety and depression, which she reports is going well. Follow-up was advised in one month to monitor weight loss progress and adjust treatment as necessary. - Take hydrochlorothiazide consistently as prescribed. - Follow the Scint-X Diet and engage in 4-5 days of physical activity weekly. - Start Adipex for weight loss and return for follow-up in one month. - Monitor thigh numbness and report any changes. Follow-up No qualifying data available Patient Education Hypertension, Adult Problem List/Past Medical History Ongoing Cellulitis of right foot Eustachian tube dysfunction HLD (hyperlipidemia) HTN ( (more content not included)... Normal [facility] Comment on above: Result Comment: Elec tronically Signed By: Elias GENAO, Dank Avilez.br\Date and Time Signed: 11/26/24 17:32 EDT hearing screening*on 025 Unknown Analyte Pass Invalid Interpretation Code [facility] urinalysis, dipstickon 10-30 Appearance (U) Clear Invalid Interpretation Code [facility] Color (U) Yellow Invalid Interpretation Code [facility] Glucose Ql (U) Negative Invalid Interpretation Code [facility] Ambulatory Visit Summaryon 0 07-16-2024 Ambulatory Visit Summary Ambulatory Visit Summary ALEJANDRO HILLS :1975 Visit Date:07/16/2024 Ambulatory Visit Instructions Your Diagnosis BMI 36.0-36.9,adult Obesity (BMI 30-39.9) Smoker Your Care Team Attending Physician - Dank Griffin MD Primary Care Physician - Dank Griffin MD This Is Your Medications List duloxetine (duloxetine [...] choosing us for your care. Normal [facility] Family Medicine Office/Clini c Noteon 07-16-2024 Family [...] BID, 16 gram, Refill(s) 0, each nostril, [facility], 165.5, cm, 07/16/24 16:51:00 EST, Height/Length Dosing, 100, kg, 07/16/24 16:51:00 EST, Weight Dosing 2. BMI 36.0-36.9,adult (Z68.36: Body mass index [BMI] 36.0-36.9, adult) BMI education added Ordered: fluticasone nasal, 1 spray(s), Nasal, BID, 16 gram, Refill(s) 0, each nostril, [facility], 165.5, cm, 07/16/24 16:51:00 EST, Height/Length Dosing, 100, kg, 07/16/24 16:51:00 EST, Weight Dosing 3. Obesity (BMI 30-39.9) (E66.9: Obesity, unspecified) Diet and exercise advised Ordered: fluticasone nasal, 1 spray(s), Nasal, BID, 16 gram, Refill(s) 0, each nostril, [facility], 165.5, cm, 07/16/24 16:51:00 EST, Height/Length Dosing, 100, kg, 07/16/24 16:51:00 EST, Weight Dosing 4. Smoker (F17.200: Nicotine dependence, unspecified, uncomplicated) Please stop smoking. Ordered: fluticasone nasal, 1 spray(s), Nasal, BID, 16 gram, Refill(s) 0, each nostril, [facility], 165.5, cm, 07/16/24 16:51:00 EST, [...] Oral, Daily, 1 refills Flonase 0.05 mg/inh [place], 1 spray(s), Nasal, BID hydrochlorothiazide 12.5 mg [...] (COVID-19) mRN (more content not included)... Normal [facility] Comment on above: Result Comment: Elec tronically Signed By: Elias GENAO, Dank Borges\.br\Date and Time Signed: 07/16/24 17:14 EST Family [...] day(s), # 6 tab(s), Refills(s) 0, Pharmacy: [facility], 165.5, cm, 05/21/24 14:27:00 EST, Height/Length Dosing, 101.1, kg, 05/21/24 14:27:00 EST, Weight Dosing methylPREDNISolone, = 1 packet(s), Oral, As Directed, as directed on package labeling, X 6 day(s), # 21 tab(s), Refills(s) 0, Pharmacy: [facility], 165.5, cm, 05/21/24 14:27:00 EST, Height/Length Dosing, 101.1, kg, 05/21/24 14:27:00 EST, Weight Dosing Influenza Type A&B POC 35253 2. Wheezing (R06.2: Wheezing) As above Ordered: azithromycin, = 1 packet(s), Oral, As Directed, as directed on package labeling, X 5 day(s), # 6 tab(s), Refills(s) 0, Pharmacy: [facility], 165.5, cm, 05/21/24 14:27:00 EST, Height/Length Dosing, 101.1, kg, 05/21/24 14:27:00 EST, Weight Dosing methylPREDNISolone, = 1 packet(s), Oral, As Directed, as directed on package labeling, X 6 day(s), # 21 tab(s), Refills(s) 0, Pharmacy: [facility], 165.5, cm, 05/21/24 14:27:00 EST, Height/Length Dosing, 101.1, kg, 05/21/24 14:27:00 EST, Weight Dosing Influenza Type A&B POC 34032 3. BMI 36.0-36.9,adult (Z68.36: Body mass index [BMI] 36.0-36.9, adult) BMI education added Ordered: azithromycin, = 1 packet(s), Oral, As Directed, as directed on package labeling, X 5 day(s), # 6 tab(s), Refills(s) 0, Pharmacy: [facility], 165.5, cm, 05/21/24 14:27:00 EST, Height/Length Dosing, 101.1, kg, 05/21/24 14:27:00 EST, Weight Dosing methylPREDNISolone, = 1 packet(s), Oral, As Directed, as directed on package labeling, X 6 day(s), # 21 tab(s), Refills(s) 0, Pharmacy: [facility], 165.5, cm, 05/21/24 14:27:00 EST, Height/Length Dosing, 101.1, kg, 05/21/24 14:27:00 EST, Weight Dosing 4. Exogenous obesity (E66.09: Other obesity due to excess calories) Diet and exercise advised Ordered: azithromycin, = 1 packet(s), Oral, As Directed, as directed on package labeling, X 5 day(s), # 6 tab(s), Refills(s) 0, Pharmacy: [facility], 165.5, cm, 05/21/24 14:27:00 EST, Height/Length Dosing, 101.1, kg, 05/21/24 14:27:00 EST, Weight Dosing methylPREDNISolone, = 1 packet(s), Oral, As Directed, as directed on package labeling, X 6 day(s), # 21 tab(s), Refills(s) 0, Pharmacy: [facility], 165.5, cm, 05/21/24 14:27:00 EST, Height/Length Dosing, 101.1, kg, 05/21/24 14:27:00 EST, Weight Dosing 5. Smoker (F17.200: Nicotine dependence, unspecified, uncomplicated) Please stop smoking Ordered: azithromycin, = 1 packet(s), Oral, As Directed, as directed on package labeling, X 5 day(s), # 6 tab(s), Refills(s) 0, Pharmacy: [facility], 165.5, cm, 05/21/24 14:27:00 EST, Height/Length Dosing, 101.1, kg, 05/21/24 14:27:00 EST, Weight Dosing methylPREDNISolone, = 1 packet(s), Oral, As Directed, as directed on package labeling, X 6 day(s), # 21 tab(s), Refills(s) 0, Pharmacy: [facility], 165.5, cm, 05/21/24 14:27:00 EST, Height/Length Dosing, 101.1, kg, 05/21/24 14:27:00 EST, Weight Dosing Follow-up No qualifying data available Patient Education BMI for Adults Problem List/Past Medical History On (more content not included)... Normal [facility] Comment on above: Result Comment: Elec tronically Signed By: Elias GENAO, Dank Borges\.br\Date and Time Signed: 05/21/24 14:44 EST CHEMISTRYOrdered By: SYSTEM SYSTEM on 06-27-2023 Albumin [...] 0.5 % Normal 0.0 - 2.0 % FT HemeAutoSS Basophils/Leukocytes Auto (Bld) [Pure # fraction] [...] 7.1 E9/L Normal 2.0 - 7.5 E9/L FT HemeAutoSS HEMATOLOGYOrdered By: Rosie Bailey on 06-27-2023 [...] 11.3 E9/L High 4.0 - 11.0 E9/L [facility] HemeAutoSS XR LSPINE MIN 4 VIEWSon 04-13 [...] Date: 2022-04-23 06:28 Normal [facility] GROUP A STREP CULTUREon 10-11 S. pyogenes Ag Ql (Unsp spec) Culture Observations: Negative for Group A Streptococcus Normal [facility] Comment on above: Performed By: #### S SCRN, GRASTCX #### [facility] [address] [address] [address] Latanya Gaitan STREPT SCREENon 10-29-2021 STREP SCREEN A Negative Normal NEGATIVE [facility] Comment on above: Performed By: #### S SCRN, GRASTCX #### [facility] [address] [address] [address] Latanya Gaitan XR NECK SOFT TISSUEon [...] Date: 2021-10-29 04:33 Normal [facility] XR HIP RIGHT 2 VIEWSon 09-20 [...] right hip with mild degenerative changes. Normal [facility] Vital Signs Date Time Vital Sign Value Performing Clinician Facility 02-12-2025 10:10-0400 Body height 165.1 cm PHYSICIAN NO [facility] 02-12-2025 10:10-0400 Body mass index (BMI) [Ratio] 36.6 kg/m2 PHYSICIAN NO [facility] 02-12-2025 10:10-0400 Body temperature 97.3 [degF] PHYSICIAN NO [facility] 02-12-2025 10:10-0400 Body weight 99.79 kg PHYSICIAN NO [facility] 02-12-2025 10:10-0400 Diastolic blood pressure 84 mm[Hg] PHYSICIAN NO [facility] 02-12-2025 10:10-0400 Heart rate 86 /min PHYSICIAN NO [facility] 02-12-2025 10:10-0400 Respiratory rate 20 /min PHYSICIAN NO [facility] 02-12-2025 10:10-0400 SaO2% (BldA) [Mass fraction] 97 % PHYSICIAN NO [facility] 02-12-2025 10:10-0400 Systolic blood pressure 126 mm[Hg] PHYSICIAN NO [facility] 01-24-2025 15:49-0400 Body height 165.1 cm Tobias Lin DPM Work Phone: [facility] 01-24-2025 15:49-0400 Body mass index (BMI) [Ratio] 36.61 kg/m2 Tobias Riley DPM Work Phone: [facility] 01-24-2025 15:49-0400 Body weight 99.79 kg Tobias Lin DPM Work Phone: [facility] 01-24-2025 15:49-0400 Respiratory rate 16 /min Tobias Lin DPM Work Phone: [facility] 01-07-2025 16:05-0400 Body height 165.1 cm Tobias Lin DPM Work Phone: [facility] 01-07-2025 16:05-0400 Body mass index (BMI) [Ratio] 36.61 kg/m2 Tobias Riley DPM Work Phone: [facility] 01-07-2025 16:05-0400 Body weight 99.79 kg Tobias Riley DPM Work Phone: [facility] 01-07-2025 16:05-0400 Respiratory rate 18 /min Tobias Lin DPM Work Phone: [facility] 12-17-2024 14:18-0400 Body height 165.1 cm PHYSICIAN NO [facility] 12-17-2024 14:18-0400 Body mass index (BMI) [Ratio] 36.6 kg/m2 PHYSICIAN NO [facility] 12-17-2024 14:18-0400 Body temperature 98 [degF] PHYSICIAN NO [facility] 12-17-2024 14:18-0400 Body weight 99.79 kg PHYSICIAN NO [facility] 12-17-2024 14:18-0400 Diastolic blood pressure 82 mm[Hg] PHYSICIAN NO [facility] 12-17-2024 14:18-0400 Heart rate 78 /min PHYSICIAN NO [facility] 12-17-2024 14:18-0400 SaO2% (BldA) [Mass fraction] 96 % PHYSICIAN NO [facility] 12-17-2024 14:18-0400 Systolic blood pressure 130 mm[Hg] PHYSICIAN NO [facility] 10-30-2024 01:00-0400 Body height 165.1 cm Zahira Sandhu [place] [facility] 10-30-2024 01:00-0400 Body mass index (BMI) [Ratio] 38.4 kg/m2 Zahira Edson [place] - [facility] 10-30-2024 01:00-0400 Body surface area Derived from formula 2.19 m2 Zahira Edson [place] - [facility] 10-30-2024 01:00-0400 Body weight 104.69 kg [facility] [place] [facility] 10-30-2024 01:00-0400 Diastolic blood pressure 80 mm[Hg] [facility]dson [place] [facility] 10-30-2024 01:00-0400 Heart rate 82 /min Zahira Sandhu [place] - [facility] 10-30-2024 01:00-0400 SaO2% (BldA) [Mass fraction] 99 % [facility] Sandhu [place] [facility] 10-30-2024 01:00-0400 Systolic blood pressure 138 mm[Hg] Azhira Edson [place] [facility] Encounters Encounter Date Encounter Type Care Provider Facility Start: 03-07-2025 End: 03-07-2025 ambulatory KATHY REYNOSO Facility:[facility] Start: 02-28-2025 ambulatory KATHY REYNOSO Facili ty:[facility] Start: 02-12-2025 End: 02-12-2025 ambulatory PHYSICIAN [facility] Work Phone: Start: 02-12-2025 End: 02-12-2025 Patient encounter procedure Nilda Natalie Barry APRN [facility] Work Phone: Start: 01-24-2025 End: 01-24-2025 Office outpatient visit 15 minutes Tobias Lin DPM Work Phone: [facility] Comment on above: Plantar fasciitis (P rimary Dx); Contracture of left ankle Start: 01-24-2025 End: 01-24-2025 ambulatory TOBIAS LIN Not Available Start: 01-24-2025 End: 01-24-2025 Bamboo flowsheet Tobias Lin DPM Work Phone: [facility] Start: 01-24-2025 End: 01-24-2025 Bamboo flowsheet Tobias Lin DPM Work Phone: [facility] Start: 01-24-2025 End: 01-24-2025 ambulatory KATHY REYNOSO Facility:[facility] Start: 01-07-2025 End: 01-07-2025 ambulatory TOBIAS LIN Not Available Start: 01-07-2025 End: 01-07-2025 Office outpatient new 30 minutes Tobias Lin DPM [facility] Comment on above: Heel spur, left (Susan radu Dx); Plantar fasciitis; Contracture of left ankle Start: 01-07-2025 End: 01-07-2025 Bamboo flowsheet Tobias Lin DPM Work Phone: [facility] Start: 01-07-2025 End: 01-07-2025 Bamboo flowsheet Tobias Lin DPM Work Phone: [facility] Start: 12-27-2024 End: 12-27-2024 Patient encounter procedure Varun Woods MD -[facility] [place] Work Phone: Start: 12-27-2024 End: 12-27-2024 ambulatory PHYSICIAN [facility] Work Phone: Start: 12-24-2024 End: 12-24-2024 ambulatory KATHY BRUNSONHMANN Facility:[facility] Start: 12-17-2024 End: 12-17-2024 ambulatory PHYSICIAN [facility] Work Phone: Start: 12-17-2024 End: 12-17-2024 Patient encounter procedure Varun Woods MD -[facility] [place] Work Phone: Start: 11-26-2024 End: 11-26-2024 ambulatory Dank Griffin Facility:[facility] Start: 11-22-2024 End: 11-22-2024 ambulatory Dank Griffin Facility:[facility] Start: 10-30-2024 General examination of patient Zahira Sandhu IN [facility] Start: 10-30-2024 Initial preventive medicine new patient 40-64yrs Zahira Sandhu IN [facility] Start: 07-16-2024 End: 07-16-2024 ambulatory Dank Griffin Facility:[facility] Start: 05-21-2024 End: 05-21-2024 ambulatory Dank Griffin Facility:[facility] Start: 06-27-2023 End: 06-27-2023 Lab Drop off Dank Griffin [facility] Start: 06-22-2023 End: 06-23-2023 Pre-admission assessment Luisana Elena [facility] Start: 04-22-2022 End: 04-23-[address] PIETRO RENDON Facility:[facility] Start: 10-29-2021 End: 10-29-[address] PIETRO RENDON Facility:[facility] Start: 07-29-2021 End: 07-30-[address] PIETRO RENDON Facility:[facility] Start: 09-20-2017 Ambulatory [facility]ODIE [facility]udy [facility] Start: 09-20-2017 Ambulatory BRODIE Yates [facility] Start: 08-30-2017 Ambulatory BRODIE Trudy [place] [facility] Procedures Date Procedure Procedure Detail Performing Clinician Start: 12-27-2024 Duplex scan of lower limb veins PHYSICIAN NO FAMILY Start: 06-13-2017 Hysterectomy Zahira Sandhu H/O: hysterectomy S/P hysterectomy PHYSIC YANNA NO FAMILY H/O: surgery S/P correction o f deviated nasal septum PHYSICIAN NO FAMILY History of tonsillectomy S/P tonsillectom y PHYSICIAN NO FAMILY Hysterectomy and bilateral salpingo-oophorectomy sample (specimen) Luisana Elena Tonsillectomy Basem Elena Plan of Treatment Date Care Activity Detail Author Start: 02-11-2025 Influenza vaccination Influenza Vacc ine (#1) [facility] Start: 01-24-2025 End: 01-24-2025 Clinical Support 01/24/2025 3:50 PM EDT Clinical Support [facility] [address] [facility] [address] [place] [address] Tobias Lin, BARBARA [address] [facility] [address] [place] [address] Plantar fasciitis (Primary Dx); Contracture of left ankle [facility] Comment on above: Plantar fasciitis (P rimary Dx); Contracture of left ankle Start: 12-27-2024 Duplex scan of lower limb veins US venous duplex LE BI [facility] Start: 12-27-2024 US Lower extremity v ein - bilateral [facility] Start: 10-30-2024 urinalysis, dipstick [facility] Start: 10-30-2024 InPerson; Emp Physic al Other [place] - [facility] Start: 2013 Screening for malign ant neoplasm of breast Mammogram [facility] Start: 2003 Screening for malign ant neoplasm of cervix [facility] Start: 1994 Screening for malign ant neoplasm of cervix Pap Smear [facility] Start: 1973 Screening for malign ant neoplasm of colon [facility] Patient Education [place] [facility] Immunizations Immunization Date Immunization Notes Care Provider Fa cility 12-12-2020 SARS-CoV-2 (COVID-19 ) mRNA BNT-162b2 vax Basem [facility] 11-20-2020 SARS-CoV-2 (COVID-19 ) mRNA BNT-162b2 vax Basem [facility] Comment on above: Result Comment: 2022: [id number] 06-26-2020 diphtheria, tetanus toxoids and pertussis vaccine Zahira Sandhu [place] [facility] 06-22-2015 tetanus toxoid, adsorbed Zahira Sandhu [place] [facility] Payers Date Payer Category Payer Self-pay [id number] 2023 [facility] er Subscriber Plan / Payer (Effective 2023-Present) Name: Alejandro Hills Relation to Subscriber: Self Name: Alejandro Hills Payer ID: Not on file Type: Not on file Address: [place] [id number] 2017 Private Health Insurance [id number] 1975 Unknown [id number] [id number]. 2.593 1973 Unknown [id number] 2.16.840.1.789024.3.579. 2.593 1973 Unknown [id number] 2.16.840.1.674997.3.579. 2.593 1973 Unknown [id number] 2.16.840.1.261462.3.579. 2.1259 1973 Unknown [id number] 2.16.840.1.336313.3.579. 2.1259 1973 Unknown [id number] 2.16.840.1.265853.3.579. 2.727 1973 Unknown [id number] 2.16.840.1.245396.3.579. 2.727 1973 Unknown [id number] 2.16.840.1.785617.3.579. 2.727 1973 Unknown [id number] 2.16.840.1.327642.3.579. 2.727 1973 Unknown [id number] 2.16.840.1.333800.3.579. 2.727 1973 Unknown [id number] 2.16.840.1.592124.3.579. 2.727 1973 Unknown [id number] 2.16.840.1.396735.3.579. 2.727 1973 Unknown [id number] 2.16.840.1.609802.3.579. 2.727 1959 Unknown [id number] Unknown UNKNOWN [id number] Unknown [id number] [id number]. 2.531 Social History Date Type Detail Facility Start: 05-23-2023 End: 06-27-2023 Tobacco smoking status Heavy tobacco smoker (finding) [facility] [place] Start: 10-05-2023 End: 01-07-2025 Sex Assigned At Female [facility] Start: 12-17-2024 End: 12-31-2024 Tobacco Smoking Status NHIS Current Every Day Smoker [place] [facility] Start: 1975 Sex Assigned At Unknown I [place] - [facility] Sex Female (finding) [facility] Start: 1975 Sex Assigned At Female F [facility] History of tobacco use Cigarette Smoker N [facility] Start: 09-21-2023 End: 01-07-2025 Tobacco use and exposure Smokeless tobacco non-user [facility] Start: 10-05-2023 End: 01-24-2025 Alcoholic beverage intake Ex-drinker (finding) [facility] Start: 10-05-2023 End: 01-07-2025 History of Social function [facility] Medical Equipment Procedure Code Equipment Code Equipment Original Text Equi pment Identifier Dates Procedure Implant ([id number]) Clinical Notes 07-29-2021 to 01-24-2025 Tobias Lin, BARBARA - 01/24/2025 10:20 AM EDTTobias Lin DPM - 01/07/2025 4:00 PM EDT Note Date & Type Note Facility 01-24-2025 History of Present illness Narrative Patient: Alejandro Hills : 1975 PCP: Dank Griffin MD SUBJECTIVE Pt presents today for follow up of left HSS. Pt has had previous treatment of 1st steroid injection, nsaids, stretching with positive relief. Pt states current pain on a 1-10 scale is a 0-1 Pt presents to day for follow up tx. Patient is currently covered by insurance for custom orthotics at this time. Allergies: No Known Allergies Past Medical History: Past Medical History: Diagnosis Date Hypertension Medications: Current Outpatient Medications: DULoxetine (Cymbalta) [address] capsule, 1 capsule every 12 (twelve) hours, Disp: , Rfl: hydroCHLOROthiazide (Microzide) 12.5 MG capsule, , Disp: , Rfl: methylPREDNISolone (Medrol Dospak) 4 MG tablets, Follow schedule on package instructions, Disp: 21 tablet, Rfl: 0 pramipexole (Mirapex) 1.5 MG tablet, See Instructions, Instructions: TAKE 1 TABLET BY MOUTH AT BEDTIME, # 30 tab(s), 5 Refill(s), Pharmacy: [id number], TAKE 1 TABLET BY MOUTH AT BEDTIME, Disp: , Rfl: Social History: Social History Socioeconomic History Marital status: Spouse name: Not on file Number of children: Not on file Years of education: Not on file Highest education level: Not on file Occupational History Not on file Tobacco Use Smoking status: Every Day Current packs/day: 1.00 Types: Cigarettes Smokeless tobacco: Never Substance and Sexual Activity Alcohol use: Not Currently Drug use: Not on file Sexual activity: Not on file Other Topics Concern Not on file Social History Narrative Not on file Social Drivers of Health Financial Resource Strain: Not on file Food Insecurity: Not on file Transportation Needs: Not on file Physical Activity: Not on file Stress: Not on file Social Connections: Not on file Intimate Partner Violence: Not on file Housing Stability: Not on file ROS: General: denies fever, chills, fatigue, malaise Gastrointestinal: denies abdominal pain, ulcers, or changes in appetite or bowel habits Musculoskeletal: denies arthritis, denies loss of strength, pain to hip, knees, back Cardiovascular: denies CP, palpitations, irregular rhythms OBJECTIVE LE EXAM: DERM: Positive hair growth to b/l feet with good skin turgor noted. Negative openings in skin VASC: Palpable pedal pulsed b/l with warm to cool tibia to toes b/l NEURO: Gross sensation intact digits 1-10 and b/l feet ORTHO: 20 degrees inversion and 10 degrees eversion STJ b/l. Ankle ROM less than 10 degrees b/l. Minimal to no pain on palpation to left medial calcaneal tubercle ASSESSMENT 1. Plantar fasciitis 2. Contracture of left ankle PLAN Patient to continue with oral anti - inflammatories as needed for pain and recommended OTC medications such as tylenol or Ibuprofen Pt presents today for casting of a removable foot inserts/orthotics today that was accomplished with scanning of feet and sent to orthotics lab.(L3020 right and L3020 left foot). Pt to have signed ABN for device if needed. It was explained to the patient of a break in period for the devices. The patient is ambulatory may benefit functionally for this device. It may be used for the following conditions as noted per EMR. Patient is to continue with stretching excercizes daily with patient to continue with night stretching splint or manual stretching. Tobias Lin DPM documented in this encounter [facility] 01-24-2025 Note Patient Education Nutrition Budget-Friendly Healthy Eating There are many ways to save money at the grocery store and continue to eat healthy. This can work if you: ??? Make a grocery list and only buy food that is on the list. ??? Plan meals that fit your budget. ??? Make food yourself at home. What are tips for following this plan? Reading food labels ??? Compare food labels between brand name and store brand foods. Often the nutritional value is the same, but the store brand is cheaper. ??? Look for products that do not have added sugar, fat, or salt (sodium). These often cost the same but are healthier for you. Products may be labeled as: ? Sugar-free. ? Nonfat. ? Low-fat. ? Sodium-free. ? Low-sodium. ??? Look for lean ground beef labeled as at least 93% lean and 7% fat. Prepare for shopping ??? Make a grocery list and bring it to the store. If you have a mobile phone, you could use it to create your shopping list. ??? Check store apps and online, and look in newspapers for weekly deals. ??? Check for coupons, but use coupons only for foods and brands you normally buy. Do not buy items you would not normally buy just because they are on sale. ??? If possible, go to other stores to find the best prices. Consider shopping at dollar stores, larger wholesale stores, local fruit and vegetable stands, and [employer] markets. Shopping ??? Buy only what is on your grocery list. Go only to the areas of the store that have the items on your list. ??? Look at the unit prices on the shelf or colby tag. Use it to find out which items are the best deals. ??? Do not shop when you are hungry. If you are hungry, it may be hard to stick to your list and budget. ??? Look at the top and bottom shelves for deals. Foods at eye level (for both adults and children) usually cost more. ??? Be efficient with your time when shopping. The more time you are at the store, the more money you will likely spend. What to look for when shopping ??? Choose healthy items that are often low cost, such as carrots, potatoes, apples, bananas, and oranges. Dried or canned beans are a low-cost protein source. ??? If you can, buy in bulk. Items you can buy in bulk include meats, fish, poultry, frozen fruits, and frozen vegetables, herbs, spices, flour, pasta, nuts, and dried fruit. ??? Try not to buy: ? Vlzap-ps-rwb foods, such as pre-cut fruits and vegetables and pre-made salads. ? Chips, cookies, and other junk food. These items are usually expensive and not healthy. ? Sodas and other sweetened drinks. Choose water instead. ? Fruits and vegetables that are out of season. Healthy in-season foods usually cost less. ??? Buy a variety of vegetables and fruits by getting fresh, frozen, and canned items. ??? To save money when getting more expensive foods like meats and dairy: ? Choose cheaper cuts of meat, such as bone-in chicken thighs and drumsticks, instead of skinless and boneless chicken. When you are ready to prepare the chicken, you can remove the skin to make it healthier. ? Choose lean meats like chicken or turkey instead of beef. ? Choose seafood canned in water, such as tuna, salmon, or sardines. ? Buy eggs as a lower-cost source of protein. ? Buy dried beans and peas, such as lentils, split peas, or kidney beans instead of meats. Dried beans and peas are other good sources of protein. ? Buy large tubs of yogurt instead of one-serving size. Cooking ??? Make extra food and freeze the extra in meal-sized containers or in individual portions for fast meals and snacks. ??? Pre-cook on days when you have extra time to prepare meals. You can keep these meals in the fridge or freezer and reheat for a quick meal. ??? When you come home from the store, wash, peel, and cut up fruits and vegetables so they are ready to use and eat. This will help keep you from eating less healthy snacks and reduce food waste. Meal planning ??? Do not eat out or get fast food. Make food at home. ??? Plan meals and snacks using the grocery list and budget you create. ??? Use leftovers in your meal plan for the week. ??? Look for recipes where you can cook once and make enough food for many meals. ??? Prepare budget-friendly types of meals like stews, casseroles, and stir-chase dishes. ??? Try some meatless meals or try no cook meals like salads. ??? Make sure that half your plate is filled with fruits or vegetables. Choose from fresh, frozen, or canned fruits and vegetables. If eating canned, remember to rinse them before eating. This will remove any excess salt added for packaging. Where to find more information ??? U.[place]. Department of Agriculture: myplate.gov This information is not intended to replace advice given to you by your health care provider. Make sure you discuss any questions you have with your health care provider. Document Revised: 06/23/2023 Document Reviewed: 03/07/2023 [employer] Patient Education (more content not included)... [facility] 01-07-2025 History of Present illness Narrative Patient: Alejandro Hills : 1975 PCP: Dank Griffin MD SUBJECTIVE This is a 49 y.o. female that presents today for a CC of left heel pain . States pain with 1st steps in the morning and sharp in nature with treatments consisting of anti-inflammatories and shoe gear modifications with negative relief and presents today for treatment. States the pain on a 1-10 scale a 8 Allergies: No Known Allergies Past Medical History: Past Medical History: Diagnosis Date Hypertension Medications: Current Outpatient Medications: DULoxetine (Cymbalta) [address] capsule, 1 capsule every 12 (twelve) hours, Disp: , Rfl: hydroCHLOROthiazide (Microzide) 12.5 MG capsule, , Disp: , Rfl: methylPREDNISolone (Medrol Dospak) 4 MG tablets, Follow schedule on package instructions, Disp: 21 tablet, Rfl: 0 pramipexole (Mirapex) 1.5 MG tablet, See Instructions, Instructions: TAKE 1 TABLET BY MOUTH AT BEDTIME, # 30 tab(s), 5 Refill(s), Pharmacy: [id number], TAKE 1 TABLET BY MOUTH AT BEDTIME, Disp: , Rfl: Social History: Social History Socioeconomic History Marital status: Spouse name: Not on file Number of children: Not on file Years of education: Not on file Highest education level: Not on file Occupational History Not on file Tobacco Use Smoking status: Every Day Current packs/day: 1.00 Types: Cigarettes Smokeless tobacco: Never Substance and Sexual Activity Alcohol use: Not Currently Drug use: Not on file Sexual activity: Not on file Other Topics Concern Not on file Social History Narrative Not on file Social Drivers of Health Financial Resource Strain: Not on file Food Insecurity: Not on file Transportation Needs: Not on file Physical Activity: Not on file Stress: Not on file Social Connections: Not on file Intimate Partner Violence: Not on file Housing Stability: Not on file ROS: General: denies fever, chills, fatigue, malaise Gastrointestinal: denies abdominal pain, ulcers, or changes in appetite or bowel habits Musculoskeletal: denies arthritis, denies loss of strength, pain to hip, knees, back Cardiovascular: denies CP, palpitations, irregular rhythms OBJECTIVE LE EXAM: DERM: Positive hair growth to b/l feet with good skin turgor noted. Negative openings in skin VASC: Palpable pedal pulsed b/l with warm to cool tibia to toes b/l NEURO: Gross sensation intact digits 1-10 and b/l feet ORTHO: 20 degrees inversion and 10 degrees eversion STJ b/l. Ankle ROM less than 10 degrees b/l. Positive pain on palpation to left medial calcaneal tubercle XRAY: US: DIAGNOSTIC US REPORT - Verbal order today for imaging today The plantar arch and heel of the left foot were scanned today using a 12MHz linear probe in the transverse and sagittal planes, concerning the plantar fascia. Images were obtained. FINDINGS - US exam demonstrates hypo-echoic thickening of plantar fascia with its origin at the medial plantar tuberosity of the calcaneus. The area of thickening and inflammation is greater than 4mm (norm = 4 mm). Notable calcaneal enthesophyte to plantar left calcaneus IMPRESSION - Left heel plantar fasciitis with heel spur ASSESSMENT 1. Heel spur, left 2. Plantar fasciitis 3. Contracture of left ankle PLAN Patient to continue with oral anti - inflammatories as needed for pain and recommended OTC medications such as tylenol or Ibuprofen Reviewed ultrasound today with patient Pt given steroid injection to left medial calcaneal tubercle under US guidance with visualization of injected fluid into area of concern per imaging. Injection of 1cc kenalog 10 and 2cc xylocaine 2% plain. Informed patient of risks and benefits of injection including non resolution of symptoms,steroid flare, tendon damage or rupture. Pt consents to proceed. 1st injection Dispensed night splint/dynamic customized AFO (L4397) to ambulatory patient today with patient education on usage and ABN signed for device if warranted. A verbal order for dispensing of device was given today. Device dispensed for ankle contracture/deformity and or plantar fascitis as noted per diagnosis.The patient may benefit functionally from this device. The AFO was assembled with straps adjusted for proper custom fitting by Tobias Lin DPM and staff. The patient is ambulatory and may benefit functionally from this device. It may be used for the following conditions as noted per medical diagnosis. Pre-certify for inserts Tobias Lin DPM documented in this encounter [facility] 12-24-2024 Note Patient Education Orthopedics Foot Pain Many things can cause foot pain. Common causes include injuries to the foot. The injuries include sprains or broken bones, or injuries that affect the nerves in the feet. Other causes of foot pain include arthritis, blisters, and bunions. To know what causes your foot pain, your health care provider will take a detailed history of your symptoms. They will also do a physical exam as well as imaging tests, such as X-ray or MRI. Follow these instructions at home: Managing pain, stiffness, and swelling ??? If told, put ice on the painful area. ? Put ice in a plastic bag. ? Place a towel between your skin and the bag. ? Leave the ice on for 20 minutes, 2?3 times a day. ??? If your skin turns bright red, remove the ice right away to prevent skin damage. The risk of damage is higher if you cannot feel pain, heat, or cold. Activity ??? Do not stand or walk for long periods. ??? Do stretches to relieve foot pain and stiffness as told by your provider. ??? Do not lift anything that is heavier than 10 lb (4.5 kg), or the limit that you are told, until your provider says that it is safe. Lifting a lot of weight can put added pressure on your feet. ??? Return to your normal activities as told by your provider. Ask your provider what activities are safe for you. Lifestyle ??? Wear comfortable, supportive shoes that fit you well. Do not wear high heels. ??? Keep your feet clean and dry. General instructions ??? Take sdry-pte-tkjdkvg and prescription medicines only as told by your provider. ??? Rub your foot gently. ??? Pay attention to any changes in your symptoms. Let your provider know if symptoms become worse. ??? Keep all follow-up visits. Your provider will want to monitor your progress. Contact a health care provider if: ??? Your pain does not get better after a few days of treatment at home. ??? Your pain gets worse. ??? You cannot stand on your foot. ??? Your foot or toes are swollen. ??? Your foot is numb or tingling. Get help right away if: ??? Your foot or toes turn white or blue. ??? You have warmth and redness along your foot. This information is not intended to replace advice given to you by your health care provider. Make sure you discuss any questions you have with your health care provider. Document Revised: 06/23/2023 Document Reviewed: 03/01/2023 Elsevier Patient Education ? 2023 [employer] [facility] 12-17-2024 Evaluation note Diagnosis Onset Date Resolution Localized swelling of both lower legs acute December 17, 2024 2 :14pm [facility] Work Phone: [phone]) 130-458506-27-2025 NoteEntered by PIETRO RENDON DO on December 07, 2024 20:52:04 EDT From: PIETRO RENDON DO To: [id number] Sent: 12/07/2024 20:52:04 EDT Subject: Medication Management Submitted: Complete:pramipexole (pramipexole 1.5 mg oral tablet) Signed by PIETRO RENDON DO 12/07/2024 20:52:00 EDT Approved pramipexole (pramipexole 1.5 mg tablet) TAKE 1 TABLET BY MOUTH AT BEDTIME Qty: 30 tab(s) Days Supply: 30 Refills: 5 Substitutions Allowed Route To Pharmacy - [id number] From: [id number] To: PIETRO RENDON DO Sent: December 07, 2024 9:21:57 AM CDT Subject: Medication Management Due: December 08, 2024 12:20:03 AM CDT On Hold Pending Signature Drug: pramipexole (pramipexole 1.5 mg oral tablet), TAKE 1 TABLET BY MOUTH AT BEDTIME Quantity: 30 tab(s) Days Supply: 30 Refills: 5 Substitutions Allowed Notes from Pharmacy: This prescription was filled on 05/16/2024. Any refills authorized will be placed on file. Dispensed Drug: pramipexole (pramipexole 1.5 mg oral tablet), TAKE 1 TABLET BY MOUTH AT BEDTIME Quantity: 30 tab(s) Days Supply: 30 Refills: 5 Substitutions [facility]owed [id number] Patient Education Cardiovascular Hypertension, Adult High blood pressure (hypertension) is when the force of blood pumping through the arteries is too strong. The arteries are the blood vessels that carry blood from the heart throughout the body. Hypertension forces the heart to work harder to pump blood and may cause arteries to become narrow or stiff. Untreated or uncontrolled hypertension can lead to a heart attack, heart failure, a stroke, kidney disease, and other problems. A blood pressure reading consists of a higher number over a lower number. Ideally, your blood pressure should be below 120/80. The first ( top ) number is called the systolic pressure. It is a measure of the pressure in your arteries as your heart beats. The second ( bottom ) number is called the diastolic pressure. It is a measure of the pressure in your arteries as the heart relaxes. What are the causes? The exact cause of this condition is not known. There are some conditions that result in high bloodpressure. What increases the risk? Certain factors may make you more likely to develop high blood pressure. Some of these risk factorsare under your control, including: ??? Smoking. ??? Not getting enough exercise or physical activity. ??? Being overweight. ??? Having too much fat, sugar, calories, or salt (sodium) in your diet. ??? Drinking too much alcohol. Other risk factors include: ??? Having a personal history of heart disease, diabetes, high cholesterol, or kidney disease. ??? Stress. ??? Having a family history of high blood pressure and high cholesterol. ??? Having obstructive sleep apnea. ??? Age. The risk increases with age. What are the signs or symptoms? High blood pressure may not cause symptoms. Very high blood pressure (hypertensive crisis) may cause: ??? Headache. ??? Fast or irregular heartbeats (palpitations). ??? Shortness of breath. ??? Nosebleed. ??? Nausea and vomiting. ??? Vision changes. ??? Severe chest pain, dizziness, and seizures. How is this diagnosed? This condition is diagnosed by measuring your blood pressure while you are seated, with your arm resting on a flat surface, your legs uncrossed, and your feet flat on the floor. The cuff of the bloodpressure monitor will be placed directly against the skin of your upper arm at the level of your heart. Blood pressure should be measured at least twice using the same arm. Certain conditions can cause a difference in blood pressure between your right and left arms. If you have a high blood pressure reading during one visit or you have normal blood pressure with other risk factors, you may be asked to: ??? Return on a different day to have your blood pressure checked again. ??? Monitor your blood pressure at home for 1 week or longer. If you are diagnosed with hypertension, you may have other blood or imaging tests to help your health care provider understand your overall risk for other conditions. How is this treated? This condition is treated by making healthy lifestyle changes, such as eating healthy foods, exercising more, and reducing your alcohol intake. You may be referred for counseling on a healthy diet and physical activity. Your health care provider may prescribe medicine if lifestyle changes are not enough to get your blood pressure under control and if: ??? Your systolic blood pressure is above 130. ??? Your diastolic blood pressure is above 80. Your personal target blood pressure may vary depending on your medical conditions, your age, and other factors. Follow these instructions at home: Eating and drinking ??? Eat a diet that is high in fiber and potassium, and low in sodium, added sugar, and fat. An example of this eating plan is called the DASH diet. DASH stands for Dietary Approaches to Stop Hypertension. To eat this way: ? Eat plenty of fresh fruits and vegetables. Try to fill one half of your plate at each meal with fruits and vegetables. ? Eat whole grains, such as whole-wheat pasta, brown rice, or whole-grain bread. Fill about one fourth of your plate with whole grains. ? Eat or drink low-fat dairy products, such as skim milk or low-fat yogurt. ? Avoid fatty cuts of meat, processed or cured meats, and poultry with skin. Fill about one fourth of your plate with lean proteins, such as fish, chicken without skin, beans, eggs, or tofu. ? Avoid pre-made and processed foods. These tend to be higher in sodium, added sugar, and fat. ??? Reduce your daily sodium intake. Many people with hypertension should eat less than 1,500 mg ofsodium a day. ??? Do not drink alcohol if: ? Your health care provider tells you not to drink. ? You are , may be , or are planning to become . ??? If you drink alcohol: ? Limit how much you have to: ? 0?1 drink a day for women. ? 0?2 drinks a day for men. ? Know how much alcohol is in your drink. In the [place] one drink equals one 12 oz bottle (more content not included)...[facility]12-24-2024 NoteEntered by PIETRO RENDON DO on June 05, 2024 08:12:52 EST From: PIETRO RENDON DO To: [id number] Sent: 06/05/2024 08:12:52 EST Subject: Medication Management Submitted: Complete:pramipexole (pramipexole 1.5 mg oral tablet) Signed by PIETRO RENDON DO 06/05/2024 08:12:00 EST Approved pramipexole (pramipexole 1.5 mg tablet) TAKE 1 TABLET BY MOUTH AT BEDTIME Qty: 30 tab(s) Days Supply: 30 Refills: 5 Substitutions Allowed Route To Pharmacy - [id number] Note from Pharmacy: This prescription was filled on 05/16/2024. Any refills authorized will be placed on file. From: [id number] To: PIETRO RENDON DO Sent: June 05, 2024 7:02:15 AM MEDICAL INSURANCE CLAIMS SPECIALIST Subject: Medication Management Due: June 06, 2024 12:15:51 AM MEDICAL INSURANCE CLAIMS SPECIALIST On Hold Pending Signature Drug: pramipexole (pramipexole [...] refills authorized will be placed on file. [phone] Note Patient Education Nutrition BMI for Adults [...] This can help you reach a healthy weight.BMI screening can be done again to see if these changes are working. How is BMI calculated? Your height and weight are measured. The BMI is found from those numbers. This can be done with [place] or metric measurements. Note that charts and online BMI calculators are available to help you findyour BMI quickly and easily without doing these [...] measurement is 1.75 m x 1.75 m, whichequals 3.1 meters squared. 3. Divide the number of kilograms (your weight) by the meters squared number. In this example: 70 ?3.1 = 22.6. This is your BMI. What [...] for Disease Control and Prevention: cdc.gov ??? [place] [employer]: heart.org ??? National Heart, Lung, and Blood [place]: nhlbi.nih.gov This information is not intended to replace advice given to you by your health care provider. Make sure you discuss any questions you have with your health care provider. Document Revised: 02/17/2023 Document Reviewed: 02/10/2023 [employer] Patient Education ? 2023 [employer].[facility] 07-29-2021 NotePROCEDURE: XR FOOT RT MIN 3 VIEWS HISTORY: Pain in right foot COMPARISON: None. FINDINGS: BONES:No fracture, acute abnormality, or significant arthropathy. SOFT TISSUES:No visible soft tissue swelling. EFFUSION:None visible. OTHER: Negative. IMPRESSION: 1. No acute bone abnormality or significant degenerative changes. Electronically authenticated by: GONZALO MURRIETA Date: 2021-07-29 15:40[facility] Future Appointments Appointment Date:06/27/2023 02:00:00 PM Scheduled Provider:Dank Griffin MD Location:[facility] Appointment Type: Open Future Scheduled Tests Radiology* MA Mamm Screen w/CAD if perf and 3D Esteban [facility] Future Appointments Appointment Date:12/26/2023 02:15:00 PM Scheduled Provider:Dank Griffin MD Location:[facility] Appointment Type: Open Future Scheduled Tests Radiology* MA Mamm Screen w/CAD if perf and 3D Esteban [facility]23[facility]23 [facility] recorded[facility] [place] [facility] information [facility] Work Phone: Evaluation note* Diagnosis Heel spur, left- Primary Plantar fasciitis Plantar fascial fibromatosis Contracture of left ankle [facility] Diagnosis Plantar fasciitis- Primary Plantar fascial fibromatosis Contracture of left ankle documented [facility] this [facility] Narrative - ReportedNo medical history recorded. Gynecological HistoryNo gynecological history recorded. Obstetrics History GPAL:G 0 P 0 0 0 0 [place] - [facility] course Narrative No data available for this section [facility] No data available for this section [facility] No data available for this section [facility] referral (narrative)No reason for referral information availableC[facility] Work Phone: Summary Purpose Family History No Family History Records FoundNo Family History Records Found No data available for this section No data available for this section Nothing Reported.No Family History Records FoundNo Family History Records FoundNo Family History Records FoundNo Family History Records Found Advance Directives No Advanced Directives Records Found Advance Directive Response Recorded Date/ Time Advance Directives No November 27 5:26pm Advance Directive Response Recorded Date/ Time Advance Directives No December 24 2:09pm Advance Directive Response Recorded Date/ Time Advance Directives No December 31 9:00am Chief Complaint and Reason for Visit Chief Complaint Admit Date ref by Dank Griffin for LE edema, anesthe [facility] of [facility] December 17, 2024 2:14pm Chief Complaint Admit Date ref by Dank Griffin for LE edema, anesthe [facility] of [facility] December 17, 2024 2:14pm I83.813 December 27, 2024 3:46 pm Reason for Visit Admit Date Localized swelling of both lower legs Ju 2024 2:14pm Chief Complaint Admit Date ref by Dank Griffin for LE edema, anesthe [facility] of [facility] December 17, 2024 2:14pm [id number] December 27, 2024 3:46 pm FF Venous duplex F/U 12/27 9:53am Additional Source Comments INFORMATION SOURCE (unrecogn ized section and content) DATE CREATED AUTHOR 12/01/2017 [facility] DATE CREATED AUTHOR AUTHOR'S ORGANIZ ATION 04/26/2022 [facility] DATE CREATED AUTHOR AUTHOR'S ORGANIZ ATION 12/09/2024 [facility] DATE CREATED AUTHOR AUTHOR'S ORGANIZ ATION 12/31/2024 [facility] DATE CREATED AUTHOR AUTHOR'S ORGANIZ ATION 01/26/2025 [facility] EPIC DATE CREATED AUTHOR AUTHOR'S ORGANIZ ATION 03/15/2025 [facility] Patient Care team informatio n (unrecognized section and content) Team Status: Active Member Role Status Dates PHYSICIAN NO FAMILY Primary Care Provider Active Team Status: Inactive Member Role Status Dates PHYSICIAN NO FAMILY Primary Care Provider Active Start: December 17, 2024 End: December 17, 2024 Varun Woods MD Attending Provider Active S tart: December 17, 2024 End: December 17, 2024 Team Status: Active Member Role Status Dates LYLE Guidry Primary Care Provider Active Team Status: Inactive Member Role Status Dates Varun Woods MD Attending Provider Active S tart: December 27, 2024 End: December 27, 2024 LYLE Guidry Primary Care Provider Active Start: December 27, 2024 End: December 27, 2024 Cold Roll Operator Relationship Specialty Start Date End Date Dank Griffin MD [address] [place] [address] PCP - General Family Medicine 10/05/23 Cold Roll Operator Relationship Specialty Start Date End Date Dank Griffin MD [address] [place] [address] PCP - General Family Medicine 10/05/23 Cold Roll Operator Relationship Specialty Start Date End Date Dank Griffin MD [address] [place] [address] PCP - General Family Medicine 10/05/23 Cold Roll Operator Relationship Specialty Start Date End Date Dank Griffin MD [address] [place] [address] PCP - General Family Medicine 10/05/23 Team Status: Inactive Member Role Status Dates [facility] Primary Care Provider Active Start: February 12, 2025 End: February 12, 2025 Nilda Barry NP-C Attending Provider Active Start: February 12, 2025 End: February 12, 2025 Goals (unrecognized section and content) Goals may be documented in a n alternate section Reason for Visit (unrecogniz ed section and content) Reason Comments Heel Pain Specialty Diagnoses / Procedures Referred By Contac t Referred To Contact Podiatry Diagnoses Pain in left foot Procedures [place] OFFICE/OUTPATIENT NEW LOW MDM 30 MINUTES Kathy Reynoso NP [facility] [address] [place] [address] Phone: tel: fax: Tobias Lin DPM [address] [address] Phone: tel: fax: Referral ID Status Reason Start Date Expiration Date Visits Re quested Visits Authorized [id number] Closed 12/25/2024 03/25/2025 1 1 Reason Comments Follow-up Lt pf check FOR RECORDS PERTAINING TO PATIENTS WHO ARE [...] BE BASED ON THE PRIMARY CLINICAL RECORDS. [facility]. provides no warranty or guarantee of the accuracy or completeness of information in this document.
[2025-04-01 17:35] VITALS: BP 125/78; PULSE 83; TEMP 36.7; O2SAT 96; BMI 36.6
--- NOTE | 2025-04-01 19:21 | XR_ITS ---
The [address] [address] Patient Name: ALEJANDRO GUILLEN MRN: [id number] date: 1975 Sex: F Assigned Patient Location: ER Current Patient Location: ER Accession/Order Number: [id number] Exam Date: 04/01/2025 19:30 Report Date: 04/01/2025 20:07 At the request of: HAILEY HEAD Procedure: XR ankle LT min 3V Left lateral chest x-rays ANKLE - 3 views HISTORY: Pain, Swelling, Bruising COMPARISON: None FINDINGS: Moderate soft tissue swelling. No fractures or dislocation identified. Talar dome is intact XR/XR ankle LT min 3V IMPRESSION: NO ACUTE OSSEOUS FINDINGS. Impression dictated by: Gianni Craig M.D. 04/01/2025 8:07 PM Dictation Location: [place] [address] Electronically authenticated by: [id number] Y Date: 04/01/2025 20:07
--- NOTE | 2025-04-01 19:21 | XR_ITS ---
The [address] [address] Patient Name: ALEJANDRO GUILLEN MRN: [id number] date: 1975 Sex: F Assigned Patient Location: ER Current Patient Location: ER Accession/Order Number: [id number] Exam Date: 04/01/2025 19:30 Report Date: 04/01/2025 20:00 At the request of: HAILEY HEAD Procedure: XR tibia fibula LT 2V 2 views left tibia-fibula CLINICAL HISTORY: Trauma, Pain, Bruising, Swelling COMPARISON: None FINDINGS: No fracture-dislocation. Mild anterior tibiotalar soft tissue swelling. No radiopaque foreign body. XR/XR tibia fibula LT 2V IMPRESSION: MILD SOFT TISSUE SWELLING. NEGATIVE ACUTE OSSEOUS ABNORMALITY. Impression dictated by: Gianni Craig M.D. 04/01/2025 8:00 PM Dictation Location: [place] [address] Electronically authenticated by: [id number] Y Date: 04/01/2025 20:00
--- NOTE | 2025-04-01 19:25 | ED_ITS ---
HPI HPI - General Adult General Chief complaint: Extremity Problem, Nontraumatic Stated complaint: LEFT ANKLE ALL SWOLLEN AND BLACK AND BLUE Time Seen by Provider: 04/01/25 19:12 Source: patient Mode of arrival: walk-in Limitations: no limitations History of Present Illness HPI narrative: Patient is a 49-year-old female that presents to the emergency department with complaints of 6 days of left ankle swelling after she hit her oates on something last Tuesday. She states the pain is minimal and she has been ambulating without issue but is concerned for blood clot as she has venous insufficiency. She has no history of DVT and does not take any exogenous hormones. Related Data Home Medications ?Medication ?Instructions ?Recorded ?Confirmed duloxetine 60 mg capsule,delayed 60 mg PO QDAY 5 04/01/25 release pramipexole 1.5 mg tablet 1.5 mg PO .qhs 11/08/2403/14 Allergies Allergy/AdvReac Type Severity Reaction Status Date / Time No Known Drug Allergies Allergy Verified 04/01/25 17:38 Opioid HPI Opioid Management Most Recent Opioid Data: Last Pain Scale 3 Today, 19:41 Review of Systems ROS Status of ROS 10 or more systems reviewed and unremark able except as noted in history and below PFSH PFSH Social History Little interest or pleasure in doing things: not at all Feeling down, depressed, or hopeless: not at all Exam Narrative Exam Narrative: General: No distress, age-appropriate Skin: Warm, dry, no pallor. No rash. Head: Normocephalic, atraumatic. Neck: Supple, non-tender. Eye: Pupils are equal, round and EOMI. No scleral icterus. Ears, Nose, Mouth, and Throat: No nasal mucosal hypertrophy. Oral mucosa is moist, no posterior oropharynx erythema, uvula is mid-line Cardiovascular: Regular Rate and Rhythm without murmur, gallop or rub. Respiratory: No accessory muscle use or respiratory distress. Musculoskeletal: Full ROM of all extremities, no calf or popliteal tenderness. Ecchymosis lower left oates, tender with palpation, swelling at the ankle joint, scattered healing ecchymosis. Mild tenderness of the deltoid ligament. Negative anterior drawer, negative lateral tilt. 2+ DP pulse palpated. Patient is neurovascularly distally intact. Neurological: A&O x4. No cranial nerve dysfunction observed. No truncal ataxia. Moves all extremities. Sensation intact. Psychiatric: Cooperative and interactive. Normal mood and affect. Constitutional Vital Signs, click to edit/add: Last Vital Signs Temp 98.0 F 04/01/25 17:35 Pulse 83 04/01/25 17:35 Resp 18 04/01/25 17:35 BP 125/78 04/01/25 17:35 Pulse Ox 96 04/01/25 17:35 O2 Del Method Room Air 04/01/25 17:35 Documenting provider has reviewed patient's vital signs: yes Course Vital Signs Vital signs: Vital Signs Temperature 98.0 F 04/01/25 17:35 Pulse Rate 83 04/01/25 17:35 Respiratory Rate 18 04/01/25 17:35 Blood Pressure 125/78 04/01/25 17:35 Pulse Oximetry 96 04/01/25 17:35 Oxygen Delivery Method Room Air 04/01/25 17:35 Temperature 98.0 F 04/01/25 17:35 Pulse Rate 83 04/01/25 17:35 Respiratory Rate 18 04/01/25 17:35 Blood Pressure 125/78 04/01/25 17:35 Pulse Oximetry 96 04/01/25 17:35 Oxygen Delivery Method Room Air 04/01/25 17:35 Medical Decision Making MDM Narrative Medical decision making narrative: This is a 49-year-old female that presented to the emergency department with complaints of left ankle swelling and ecchymosis. Patient did bump her oates last Tuesday, 6 days ago. She denies any history of DVT and is not on any hormone use. She was concerned about the persistent swelling and bruising that moved down to her ankle. On arrival patient ambulates with steady nonantalgic gait, there is localized swelling around the ankle joint as well as medial and lateral ecchymosis. 2+ DP pulse palpated. Distally neurovascularly intact. Vital signs are stable. X-ray left ankle/tib/fib ordered and reviewed by myself as well as radiological read reviewed and negative for fracture or dislocation. Ankle mortise is intact. Soft tissue swelling noted. I discussed results with patient and the swelling and bruising is normal to move down with gravity. She has no swelling in her calf, no tenderness in her calf, no palpable cords, no erythema. No indication for lower extremity ultrasound at this time. We did discuss return precautions such as persistent or worsening swelling, erythema, pain, or any new or symptoms. Most likely diagnosis is tibial contusion. Patient was discharged with recommendations to do ankle pumps at home, compression, ice, and NSAIDs to help with swelling and follow-up with PCP if symptoms persist. Differential Diagnosis Differential Diagnosis: Leg contusion, tibia fracture, ankle sprain Imaging Data Left ankle and Tib/Fib x-rays: Attestation: I have reviewed the pertinent imaging results. Radiologist's impression: ITS Impressions Ankle X-Ray 04/01/25 19:21 IMPRESSION: NO ACUTE OSSEOUS FINDINGS. Impression dictated by: Gianni Craig M.D. 04/01/2025 8:07 PM Dictation Location: [employer] Electronically authenticated by: [id number] Y Date: 04/01/2025 20:07 Tibia/Fibula X-Ray 04/01/25 19:21 IMPRESSION: MILD SOFT TISSUE SWELLING. NEGATIVE ACUTE OSSEOUS ABNORMALITY. Impression dictated by: Gianni Craig M.D. 04/01/2025 8:00 PM Dictation Location: [employer] Electronically authenticated by: [id number] Y Date: 04/01/2025 20:00 Discharge Plan Discharge Chief Complaint: Extremity Problem, Nontraumatic Clinical Impression: Contusion of left leg Qualifiers: Encounter type: initial encounter Qualified Code(s): S80.12XA - Contusion of left lower leg, initial encounter Patient Disposition: Home, Self-Care Time of Disposition Decision: 20:12 Condition: Good Mode of Transportation: Private Vehicle Prescriptions / Home Meds: No Action duloxetine 60 mg capsule,delayed release(DR/EC) 60 mg PO QDAY pramipexole 1.5 mg tablet 1.5 mg PO .qhs Print Language: Jamaican Instructions: Contusion in Adults (ED) Referrals: Physician,Non-Staff, MD [Primary Care Provider] - 1 week Discharge Date/Time: 04/01/25 20:24
--- NOTE | 2025-04-01 19:42 | PC.NURSE ---
this patient complains of left lower leg and left ankle pain and swelling after waling into something to her lower leg leg,
--- NOTE | 2025-04-01 20:28 | PC.NURSE ---
i gave this patient verbal and written discharge orders and this patient voices yes to understanding these discharge orders. at time of discharge this patient voices this patient voicsno concerns, needs and show no signs of distress
== END 2025-04-01 20:24 | disposition home or self-care (01) ==
PROVIDERS: Emergency Provider Emergency Medicine
DX: S80.12XA Contusion of left lower leg, initial encounter (principal); W22.8XXA Striking against or struck by other objects, initial encounter; I87.2 Venous insufficiency (chronic) (peripheral)
CPT/HCPCS: 73590; 73610; 99283